=== PATIENT | male | born 1985 | race Caucasian/White ===

== ENCOUNTER 2018-08-24 18:19 | Emergency (ER) | payer SELFPAY ==
[2018-08-24] MEDS ORDERED: LIDOCAINE 1% W/EPI 1:100,000 MDV 50 ML VIAL ONE (18:38)
--- NOTE | 2018-08-24 18:58 | ER ---
Nurse's Notes [facility] Name: Juanito Irizarry Age: 32 yrs Sex: Male : 1985 Arrival Date: 08/24/2018 Time: 18:22 Bed 15 Private MD: Diagnosis: Cutaneous abscess of face;Cellulitis of face Presentation: 08/24 18:26 Presenting complaint: Patient states: Abscess to right orthodoxy for 4 days. Transition of aj care: patient was not received from another setting of care. Onset of symptoms was August 20, 2018. Risk Assessment: Do you want to hurt yourself or someone else? Patient reports no desire to harm self or others. Initial Sepsis Screen: Does the patient meet any 2 criteria? No. Patient's initial sepsis screen is negative. Does the patient have a suspected source of infection? No. Patient's initial sepsis screen is negative. Care prior to arrival: None. 18:26 Method Of Arrival: Ambulatory aj 18:26 Acuity: ASHVIN 3 aj Triage Assessment: 18:27 General: Appears in no apparent distress. comfortable, Behavior is calm, cooperative, aj appropriate for age. Pain: Complains of pain in right orthodoxy. Neuro: Level of Consciousness is awake, alert, obeys commands, Oriented to person, place, time, situation, Appropriate for age. Respiratory: Airway is patent Respiratory effort is even, unlabored, Respiratory pattern is regular, symmetrical. Derm: Skin is intact, is healthy with good turgor, Skin is pink, warm \T\ dry. normal, Abscess located on right orthodoxy. Historical: - Allergies: 18:27 PENICILLINS; aj - Home Meds: 18:27 Aspirin Oral [Active]; aj - PMHx: 18:27 None; aj - PSHx: 18:27 None; aj - Immunization history:: Adult Immunizations unknown. - Social history:: Smoking status: Patient uses tobacco products, smokes one-half pack cigarettes per day. - Ebola Screening: : Patient negative for fever greater than or equal to 101.5 degrees Fahrenheit, and additional compatible Ebola Virus Disease symptoms Patient denies exposure to infectious person Patient denies travel to an Ebola-affected area in the 21 days before illness onset No symptoms or risks identified at this time. Screenin:33 Abuse screen: Denies threats or abuse. Denies injuries from another. Nutritional jl7 screening: No deficits noted. Tuberculosis screening: No symptoms or risk factors identified. Fall Risk None identified. Assessment: 18:33 General: Appears in no apparent distress. uncomfortable, Behavior is calm, cooperative, jl7 appropriate for age. Pain: Complains of pain in right orthodoxy. Neuro: Level of Consciousness is awake, alert, obeys commands, Oriented to person, place, time, situation. Cardiovascular: Patient's skin is warm and dry. Respiratory: Airway is patent Respiratory effort is even, unlabored, Respiratory pattern is regular, symmetrical. Derm: Skin is pink, warm \T\ dry. Abscess located on right orthodoxy is quarter sized, has no drainage, is red, is raised. Vital Signs: 18:26 BP 135 / 83; Pulse 67; Resp 16; Temp 97.3; Pulse Ox 99% on R/A; Weight 81.19 kg; Height aj 6 ft. 1 in. (185.42 cm); 18:26 Body Mass Index 23.62 (81.19 kg, 185.42 cm) aj ED Course: 18:22 Patient arrived in ED. mr 18:26 Triage completed. aj 18:26 Arm band placed on left wrist. Patient placed in an exam room. aj 18:28 Michael Santos PA is PHCP. cp 18:28 Chavez Mcfarland MD is Attending Physician. cp 18:28 Bethel Ortiz, JUAN JOSE is Primary Nurse. jl7 18:33 Patient has correct armband on for positive identification. Bed in low position. Call jl7 light in reach. Side rails up X 1. Pulse ox on. NIBP on. 18:45 Assist provider with I \T\ D: of an abscess on right orthodoxy abscess Set up I\T\D tray. jl 7 Performed by Michael BABIN Culture sent to lab. Wound packed. iodoform gauze, Dressing with non stick Band-Aid Patient tolerated well. 19:05 Patient did not have IV access during this emergency room visit. jl7 Administered Medications: 18:45 Drug: Lidocaine-Epinephrine -1%: (1:100,000) 5 ml {Note: administered by simin Lerma.} Volume: 20 ml; Route: Infiltration; 19:03 Follow up: Response: No adverse reaction jl7 19:03 Drug: Clindamycin 300 mg Route: PO; jl7 19:03 Follow up: Response: Medication administered at discharge. jl7 19:03 Drug: Bactrim (160 mg-800 mg (DS) 1 tablet Route: PO; jl7 19:03 Follow up: Response: Medication administered at discharge. jl7 Outcome: 18:57 Discharge ordered by MD. cp 19:11 Discharged to home ambulatory. jl7 19:11 Condition: stable 19:11 Discharge instructions given to patient, Instructed on discharge instructions, follow up and referral plans. medication usage, wound care, Demonstrated understanding of instructions, follow-up care, medications, wound care, Prescriptions given X 2. 19:11 Patient left the ED. jl7 Addendum: 08/28/2018 09:57 Addendum: Culture Results: Positive wound culture. No further action required. Bacteria s s sensitive to prescribed antibiotic. Signatures: Clarisse Paz RN Makayla Orellana mr Guera Bosch RN RN ss Page, Corey, PA PA cp Leal, Jahala RN JUAN JOSE jl7 Corrections: (The following items were deleted from the chart) 08/24 18:27 18:26 Acuity: ASHVIN 4 [place]
--- NOTE | 2018-08-24 18:58 | EDPHYS ---
Physician Documentation [facility] Name: Juanito Irizarry Age: 32 yrs Sex: Male : 1985 Arrival Date: 08/24/2018 Time: 18:22 Bed 15 Private MD: ED Physician Chavez Mcfarland HPI: 08/24 18:35 This 32 yrs old Male presents to ER via Ambulatory with complaints of Abscess.cp 18:35 The patient presents with an abscess of the face and right baptism, the patient presents cp with a swollen area of the . 18:35 Description: swollen, tense, warm. Onset: The symptoms/episode began/occurred 4 day(s) cp ago. Associated signs and symptoms: Pertinent negatives: discharge, drainage, fever, headache. Severity of symptoms: in the emergency department the symptoms are unchanged, despite home interventions. Historical: - Allergies: 18:27 PENICILLINS; aj - Home Meds: 18:27 Aspirin Oral [Active]; aj - PMHx: 18:27 None; aj - PSHx: 18:27 None; aj - Immunization history:: Adult Immunizations unknown. - Social history:: Smoking status: Patient uses tobacco products, smokes one-half pack cigarettes per day. - Ebola Screening: : Patient negative for fever greater than or equal to 101.5 degrees Fahrenheit, and additional compatible Ebola Virus Disease symptoms Patient denies exposure to infectious person Patient denies travel to an Ebola-affected area in the 21 days before illness onset No symptoms or risks identified at this time. ROS: 18:40 Constitutional: Negative for body aches, chills, fever. cp 18:40 Eyes: Negative for injury, pain, redness, and discharge. cp 18:40 Respiratory: Negative for cough, shortness of breath, wheezing. 18:40 Abdomen/GI: Negative for abdominal pain, nausea, vomiting, and diarrhea. 18:40 Skin: Positive for abscess, cellulitis, of the face and right baptism. 18:40 All other systems are negative. Exam: 18:45 Constitutional: The patient appears in no acute distress, alert, awake, non-toxic, well cp developed, well nourished. 18:45 Head/face: Exam is negative for rash, Sinus tenderness, is not appreciated. cp 18:45 Eyes: Pupils: equal, round, and reactive to light and accomodation, Extraocular movements: intact throughout, Conjunctiva: normal, no exudate, no injection, Sclera: no appreciated abnormality, Lids and lashes: appear normal, bilaterally. 18:45 ENT: External ear(s): are unremarkable, Ear canal(s): are normal, clear, TM's: dullness, bilaterally, Nose: is normal, Mouth: Lips: moist, Oral mucosa: moist, Posterior pharynx: is normal, airway is patent, no erythema, no exudate, Voice: is normal. 18:45 Neck: ROM/movement: is normal, is supple, without pain, no range of motions limitations, no nuchal rigidity. 18:45 Chest/axilla: Inspection: normal, Palpation: is normal, no crepitus, no tenderness. 18:45 Cardiovascular: Rate: normal, Rhythm: regular. 18:45 Respiratory: the patient does not display signs of respiratory distress, Respirations: normal, no use of accessory muscles, no retractions, no splinting, no tachypnea, labored breathing, is not present, Breath sounds: are clear throughout, no decreased breath sounds, no stridor, no wheezing. 18:45 Abdomen/GI: Exam negative for discomfort, distension, guarding, Inspection: abdomen appears normal. 18:45 Skin: abscess, that is small, of the face and right baptism, cellulitis, that is mild, on the right baptism and face with extension to right infraorbital area. 18:45 Neuro: Orientation: to person, place \T\ time. Mentation: lucid, able to follow commands, Cerebellar function: is grossly normal, Motor: moves all fours, strength is normal, Sensation: is normal. Vital Signs: 18:26 BP 135 / 83; Pulse 67; Resp 16; Temp 97.3; Pulse Ox 99% on R/A; Weight 81.19 kg; Height aj 6 ft. 1 in. (185.42 cm); 18:26 Body Mass Index 23.62 (81.19 kg, 185.42 cm) Procedures: 18:45 I \T\ D: Incision and drainage was performed for an abscess of the face and right baptism cp Prepped with Betadine, Anesthetized with 2 ml's 1% Lidocaine w/ Epi. Incised with #11 blade. Drained small amount purulent fluid. bloody fluid. Cultures obtained. Packed with iodoform gauze, Dressing: non-Adherent dressing, the patient tolerated the procedure well. MDM: 18:29 Patient medically screened. 18:30 Differential diagnosis: abscess, cellulitis, insect bite. 18:56 Data reviewed: vital signs, nurses notes, and as a result, I will discharge patient. 18:56 Counseling: I had a detailed discussion with the patient and/or guardian regarding: the cp historical points, exam findings, and any diagnostic results supporting the discharge/admit diagnosis, to return to the emergency department if symptoms worsen or persist or if there are any questions or concerns that arise at home. 18:56 Response to treatment: the patient's symptoms have mildly improved after treatment, and cp as a result, I will discharge patient. 08/24 18:55 Order name: Wound Culture: right baptism 08/24 18:34 Order name: I\T\D Setup; Complete Time: 18:35 cp Administered Medications: 18:45 Drug: Lidocaine-Epinephrine -1%: (1:100,000) 5 ml {Note: administered by simin Lerma PA.} Volume: 20 ml; Route: Infiltration; 19:03 Follow up: Response: No adverse reaction [facility] 19:03 Drug: Clindamycin 300 mg Route: PO; [facility] 19:03 Follow up: Response: Medication administered at discharge. [facility] 19:03 Drug: Bactrim (160 mg-800 mg (DS) 1 tablet Route: PO; [facility] 19:03 Follow up: Response: Medication administered at discharge. [facility] Disposition: 19:15 Chart complete. 08/25 18:22 Co-signature as Attending Physician, Chavez Mcfarland MD. Disposition: 08/24/18 18:57 Discharged to Home. Impression: Cutaneous abscess of face, Cellulitis of face. - Condition is Stable. - Discharge Instructions: Skin Abscess, Cellulitis, Adult, Incision and Drainage. - Prescriptions for Clindamycin HCl 300 mg Oral Capsule - take 1 capsule by ORAL route every 6 hours for 10 days; 40 capsule. Bactrim DS 800- 160 mg Oral Tablet - take 1 tablet by ORAL route every 12 hours for 10 days; 20 tablet. - Medication Reconciliation Form, Thank You Letter, Antibiotic Education, Prescription Opioid Use form. - Follow up: Emergency Department; When: As needed; Reason: Worsening of condition. - Problem is new. - Symptoms have improved. Signatures: Dispatcher [employer] EDMS Clarisse Paz RN RN Michael Guerra PA PA cp Leal, Jahala, RN RN jl7 Chavez Mcfarland MD MD gs Corrections: (The following items were deleted from the chart) 08/24 19:11 18:57 08/24/2018 18:57 Discharged to Home. Impression: Cutaneous abscess of face; jl7 Cellulitis of face. Condition is Stable. Forms are Medication Reconciliation Form, Thank You Letter, Antibiotic Education, Prescription Opioid Use. Follow up: Emergency Department; When: As needed; Reason: Worsening of condition. Problem is new. Symptoms have improved. cp
[2018-08-24] MEDS ORDERED: CLINDAMYCIN HCL 150 MG CAP ONE (19:06)
[2018-08-24] MEDS ORDERED: SMZ./TMP. 800/160 MG TABLET ONE (19:06)
== END 2018-08-24 19:11 | disposition home or self-care (01) ==
LOC: ER 18:19
PROC: 0J910ZZ Drainage of Face Subcutaneous Tissue and Fascia, Open Approach (ICD-10-PCS; principal; 2018-08-24)
DX: L03.211 Cellulitis of face (principal); F17.210 Nicotine dependence, cigarettes, uncomplicated; Z79.82 Long term (current) use of aspirin; Z88.0 Allergy status to penicillin
CPT/HCPCS: 87070; 87077; 87186; 87205; 99284

== ENCOUNTER 2018-09-14 16:35 | Emergency (ER) | payer SELFPAY ==
--- NOTE | 2018-09-14 18:04 | RAD REPORT ---
EXAM DESCRIPTION: CT - Facial Bones W/ Mpr - 09/14/2018 5:39 pm CLINICAL HISTORY: Facial injury status post fall. Facial pain COMPARISON: None TECHNIQUE: Computed axial tomography of the face was obtained. Coronal and sagittal reconstruction w as performed. All CT scans are performed using dose optimization technique as appropriate and may include automated exposure control or mA/KV adjustment according to patient size. FINDINGS: A fracture is not seen. A TMJ dislocation is not noted. The globes are intact. Fluid within the sinuses is not seen. Mucoperiosteal thickening involves the m axillary sinuses IMPRESSION: Negative for a facial fracture.
--- NOTE | 2018-09-14 18:16 | ER ---
Nurse's Notes [facility] Name: Juanito Irizarry Age: 32 yrs Sex: Male : 1985 Arrival Date: 09/14/2018 Time: 16:37 Bed 24 Private MD: Diagnosis: Dislocation of tooth;Dentalgia Presentation: 09/14 16:48 Presenting complaint: Patient states: "I had a seizure last night and fell and busted aj1 my lip and I think I busted my gum line because one of my teeth is really hurting, its like knocked back a bit and I can barely chew anything" Laceration noted to inside of upper lip, bleeding noted to upper gums. Reports pain to right front tooth. States "I used to take seizure medicine, I dont remember what its called, but I ran out of it and then I moved". Patient reports he has been out of his seizure medication for 2 years. Transition of care: patient was not received from another setting of care. Onset of symptoms was September 14, 2018. Risk Assessment: Do you want to hurt yourself or someone else? Patient reports no desire to harm self or others. Initial Sepsis Screen: Does the patient meet any 2 criteria? No. Patient's initial sepsis screen is negative. Does the patient have a suspected source of infection? No. Patient's initial sepsis screen is negative. Care prior to arrival: None. 16:48 Method Of Arrival: Ambulatory aj1 16:48 Acuity: ASHVIN 3 aj1 Triage Assessment: 16:52 General: Appears in no apparent distress. uncomfortable, Behavior is calm, cooperative, aj1 appropriate for age. Pain: Complains of pain in mouth Pain currently is 7 out of 10 on a pain scale. EENT: Reports pain in frenulum and upper right central incisor. Neuro: Level of Consciousness is awake, alert, obeys commands. Cardiovascular: Patient's skin is warm and dry. Respiratory: Airway is patent Respiratory effort is even, unlabored, Respiratory pattern is regular, symmetrical. Historical: - Allergies: 16:52 PENICILLINS; aj1 - Home Meds: 16:52 Aspirin Oral [Active]; aj1 - PMHx: 16:52 Headaches; Seizures; low back pain; aj1 - PSHx: 16:52 None; aj1 - Immunization history:: Flu vaccine is not up to date. - Social history:: Smoking status: Patient/guardian denies using tobacco. - Ebola Screening: : Patient denies travel to an Ebola-affected area in the 21 days before illness onset. Screenin:00 Abuse screen: Denies threats or abuse. Denies injuries from another. Nutritional kr2 screening: No deficits noted. Tuberculosis screening: No symptoms or risk factors identified. Fall Risk None identified. Assessment: 17:00 General: Appears in no apparent distress. uncomfortable, well groomed, well developed, kr2 well nourished, Behavior is calm, cooperative, appropriate for age. Pain: Complains of pain in mouth Pain does not radiate. Pain currently is 5 out of 10 on a pain scale. Quality of pain is described as aching, tender, Is continuous, Alleviated by medications, rest. Neuro: Level of Consciousness is awake, alert, obeys commands, Oriented to person, place, time, situation, Appropriate for age. Cardiovascular: Capillary refill < 3 seconds in bilateral fingers Patient's skin is warm and dry. Respiratory: Airway is patent Respiratory effort is even, unlabored, Respiratory pattern is regular, symmetrical. EENT: Oral mucosa is moist. Upper lip swollen, laceration to inner upper lip, front tooth pushed inward. Throat is clear. Derm: Skin is healthy with good turgor, Skin is pink, warm \\T\\ dry. Musculoskeletal: Circulation, motion, and sensation intact. Vital Signs: 16:52 BP 128 / 90; Pulse 86; Resp 18; Temp 97.5; Pulse Ox 98% on R/A; Weight 82.55 kg (R); aj1 Height 6 ft. 1 in. (185.42 cm) (R); Pain 7/10; 18:29 BP 118 / 88; Pulse 84; Resp 16; Pulse Ox 100% ; kr2 16:52 Body Mass Index 24.01 (82.55 kg, 185.42 cm) aj1 ED Course: 16:37 Patient arrived in ED. tw3 16:47 Amanda Lindo FNP-C is PHCP. snw 16:47 Wayne He MD is Attending Physician. snw 16:50 Triage completed. aj1 16:52 Arm band placed on Patient placed in an exam room. aj1 16:54 Willi Day PA is PHCP. jr8 16:54 Wayne He MD is Attending Physician. jr8 17:00 Patient has correct armband on for positive identification. Bed in low position. Call kr2 light in reach. Side rails up X 1. Pulse ox on. NIBP on. Door closed. Warm blanket given. Head of bed elevated. 17:37 Laura Chew, RN is Primary Nurse. kr2 17:38 CT completed. Patient moved to CT via wheelchair. Patient moved back from CT. cw1 17:39 CT Facial Bones W/O Con In Process Unspecified. EDMS 17:59 Diet: Patient given snack. Patient given juice. Tolerated well. jp3 18:27 No provider procedures requiring assistance completed. Patient did not have IV access kr2 during this emergency room visit. Administered Medications: No medications were administered Outcome: 18:16 Discharge ordered by MD. jr8 18:27 Discharged to home ambulatory. kr2 18:27 Condition: good 18:27 Discharge instructions given to patient, Instructed on discharge instructions, follow up and referral plans. medication usage, Demonstrated understanding of instructions, follow-up care, medications, Prescriptions given X 2. 18:30 Patient left the ED. kr2 Signatures: Dispatcher [employer] EDNV Nini Holland RN RN aj1 Amanda Lindo, [employer] DEVELOPMENT CONSULTANT-Jinny Goodwin cw1 Willi Day PA PA jr8 Shaun, Conchita tw3 Laura Chew, RN RN kr2 Sergio Ramirez jp3 Corrections: (The following items were deleted from the chart) 16:51 16:48 Presenting complaint: Patient states: "I had a seizure last night and fell and aj1 busted my lip and I think I busted my gum line because one of my teeth is really hurting, its like knocked back a bit and I can barely chew anything" Laceration noted to inside of upper lip, bleeding noted to upper gums. Reports pain to right front tooth. aj1 18:26 16:40 General: Appears in no apparent distress. uncomfortable, well groomed, well kr2 developed, well nourished, Behavior is calm, cooperative, appropriate for age, kr2 18:26 16:40 Pain: Complains of pain in mouth Pain does not radiate. Pain currently is 5 out kr2 of 10 on a pain scale. Quality of pain is described as aching, tender, Is continuous, Alleviated by medications, rest, kr2 18:26 16:40 Neuro: Level of Consciousness is awake, alert, obeys commands, Oriented to kr2 person, place, time, situation, Appropriate for age kr2 18:26 16:40 Cardiovascular: Capillary refill < 3 seconds in bilateral fingers Patient's skin kr2 is warm and dry. kr2 18:26 16:40 Respiratory: Airway is patent Respiratory effort is even, unlabored, Respiratory kr2 pattern is regular, symmetrical, kr2 18:26 16:40 EENT: Oral mucosa is moist. Upper lip swollen, laceration to inner upper lip, kr2 front tooth pushed inward. Throat is clear kr2 18:26 16:40 Derm: Skin is healthy with good turgor, Skin is pink, warm \\T\\ dry. kr2 kr2 18:26 16:40 Musculoskeletal: Circulation, motion, and sensation intact. kr2 kr2 18:28 16:40 Abuse screen: Denies threats or abuse. Denies injuries from another. kr2 kr2 18:28 16:40 Nutritional screening: No deficits noted. kr2 kr2 18:28 16:40 Tuberculosis screening: No symptoms or risk factors identified. kr2 kr2 18:28 16:40 Fall Risk None identified. kr2 kr2
--- NOTE | 2018-09-14 18:16 | EDPHYS ---
Physician Documentation [facility] Name: Juanito Irizarry Age: 32 yrs Sex: Male : 1985 Arrival Date: 09/14/2018 Time: 16:37 Bed 24 Private MD: ED Physician Wayne He HPI: 09/14 17:22 This 32 yrs old Male presents to ER via Ambulatory with complaints of Trauma jr8 to Face. 17:22 Onset: The symptoms/episode began/occurred acutely, yesterday. Duration: The symptoms jr8 are continuous. Associated signs and symptoms: The patient has no apparent associated signs or symptoms. Severity of symptoms: At their worst the symptoms were moderate, in the emergency department the symptoms are unchanged. The patient has not experienced similar symptoms in the past. The patient has not recently seen a physician. Patient with history of seizure disorder. Stated that he has been off of his medication for a couple of years now. Has had multiple seizures since he has been off of his meds. Had one last night at some point and woke up on the floor. Stated that his front teeth hurt and feels that his mouth is misaligned . Historical: - Allergies: 16:52 PENICILLINS; aj1 - Home Meds: 16:52 Aspirin Oral [Active]; aj1 - PMHx: 16:52 Headaches; Seizures; low back pain; aj1 - PSHx: 16:52 None; aj1 - Immunization history:: Flu vaccine is not up to date. - Social history:: Smoking status: Patient/guardian denies using tobacco. - Ebola Screening: : Patient denies travel to an Ebola-affected area in the 21 days before illness onset. ROS: 17:22 Eyes: Negative for injury, pain, redness, and discharge, Neck: Negative for injury, jr8 pain, and swelling, Cardiovascular: Negative for chest pain, palpitations, and edema, Respiratory: Negative for shortness of breath, cough, wheezing, and pleuritic chest pain, Abdomen/GI: Negative for abdominal pain, nausea, vomiting, diarrhea, and constipation, Back: Negative for injury and pain, MS/Extremity: Negative for injury and deformity, Skin: Negative for injury, rash, and discoloration. 17:22 ENT: Positive for dental pain. 17:22 Neuro: Positive for seizure activity. Exam: 18:09 Head/Face: Normocephalic, atraumatic. Eyes: Pupils equal round and reactive to light, jr8 extra-ocular motions intact. Lids and lashes normal. Conjunctiva and sclera are non-icteric and not injected. Cornea within normal limits. Periorbital areas with no swelling, redness, or edema. Neck: Trachea midline, no thyromegaly or masses palpated, and no cervical lymphadenopathy. Supple, full range of motion without nuchal rigidity, or vertebral point tenderness. No Meningismus. Cardiovascular: Regular rate and rhythm with a normal S1 and S2. No gallops, murmurs, or rubs. Normal PMI, no JVD. No pulse deficits. Respiratory: Lungs have equal breath sounds bilaterally, clear to auscultation and percussion. No rales, rhonchi or wheezes noted. No increased work of breathing, no retractions or nasal flaring. Abdomen/GI: Soft, non-tender, with normal bowel sounds. No distension or tympany. No guarding or rebound. No evidence of tenderness throughout. Back: No spinal tenderness. No costovertebral tenderness. Full range of motion. Skin: Warm, dry with normal turgor. Normal color with no rashes, no lesions, and no evidence of cellulitis. MS/ Extremity: Pulses equal, no cyanosis. Neurovascular intact. Full, normal range of motion. Neuro: Awake and alert, GCS 15, oriented to person, place, time, and situation. Cranial nerves II-XII grossly intact. Motor strength 5/5 in all extremities. Sensory grossly intact. Cerebellar exam normal. Normal gait. 18:09 ENT: Exam is negative for earache, ear discharge, TM abnormalities, nasal discharge, enlarged tonsils, pharyngitis, exudate, Dental exam: pain, that is moderate, specifically in the upper right central incisor (#8). Vital Signs: 16:52 BP 128 / 90; Pulse 86; Resp 18; Temp 97.5; Pulse Ox 98% on R/A; Weight 82.55 kg (R); aj1 Height 6 ft. 1 in. (185.42 cm) (R); Pain 7/10; 18:29 BP 118 / 88; Pulse 84; Resp 16; Pulse Ox 100% ; kr2 16:52 Body Mass Index 24.01 (82.55 kg, 185.42 cm) aj1 MDM: 16:55 Patient medically screened. jr8 18:09 Data reviewed: vital signs, nurses notes, and as a result, I will discharge patient. jr8 Data interpreted: Pulse oximetry: on room air is 98 %. Interpretation: normal. Counseling: I had a detailed discussion with the patient and/or guardian regarding: the historical points, exam findings, and any diagnostic results supporting the discharge/admit diagnosis, the need for outpatient follow up, a dentist, to return to the emergency department if symptoms worsen or persist or if there are any questions or concerns that arise at home. 09/14 17:17 Order name: CT Facial Bones W/O Con; Complete Time: 18:08 jr8 Administered Medications: No medications were administered Disposition: 18:56 Co-signature as Attending Physician, Wayne He MD I agree with the assessment and kdr plan of care. Disposition: 09/14/18 18:16 Discharged to Home. Impression: Dislocation of tooth, Dentalgia. - Condition is Stable. - Discharge Instructions: Dental Pain. - Prescriptions for Ibuprofen 800 mg Oral Tablet - take 1 tablet by ORAL route every 12 hours As needed take with food; 20 tablet. Tylenol- Codeine #3 300-30 mg Oral Tablet - take 2 tablets by ORAL route every 6 hours As needed; 12 tablet. - Medication Reconciliation Form, Thank You Letter, Antibiotic Education, Prescription Opioid Use, Work release form form. - Follow up: Private Physician; When: 2 - 3 days; Reason: Recheck today's complaints, Continuance of care, Re-evaluation by your physician. - Problem is new. - Symptoms have improved. Signatures: Dispatcher [employer] EDKS Nini Holland, RN RN aj1 Wayne He MD MD [facility] Willi Day PA PA jr8 Laura Chew RN RN kr2 Corrections: (The following items were deleted from the chart) 17:20 17:11 Mandible <4 Views+RAD.RAD.BRZ ordered. EDKS EDMS 17:20 17:11 Facial Bones <3 Views+RAD.RAD.BRZ ordered. EDKS EDMS 18:30 18:16 09/14/2018 18:16 Discharged to Home. Impression: Dislocation of tooth; Dentalgia. kr2 Condition is Stable. Forms are Medication Reconciliation Form, Thank You Letter, Antibiotic Education, Prescription Opioid Use. Follow up: Private Physician; When: 2 - 3 days; Reason: Recheck today's complaints, Continuance of care, Re-evaluation by your physician. Problem is new. Symptoms have improved. jr8
== END 2018-09-14 18:30 | disposition home or self-care (01) ==
LOC: ER 16:35
DX: S03.2XXA Dislocation of tooth, initial encounter (principal); X58.XXXA Exposure to other specified factors, initial encounter; Y93.89 Activity, other specified; Y92.9 Unspecified place or not applicable; Z79.82 Long term (current) use of aspirin; Z88.0 Allergy status to penicillin; G40.909 Epilepsy, unspecified, not intractable, without status epilepticus
CPT/HCPCS: 70486; 76377; 99284

== ENCOUNTER 2018-12-24 18:44 | Emergency (ER) | payer SELFPAY ==
--- NOTE | 2018-12-24 19:20 | EDPHYS ---
Physician Documentation [facility] Name: Juanito Irizarry Age: 33 yrs Sex: Male : 1985 Arrival Date: 12/24/2018 Time: 18:46 Bed 18 Private MD: None, None ED Physician Carlos Eduardo Ellison HPI: 12/24 19:15 This 33 yrs old Male presents to ER via Ambulatory with complaints of Back rn Pain, Shoulder Pain. 19:15 The patient presents with pain that is chronic. The symptoms are located in the low rn back. Onset: The symptoms/episode began/occurred 19 year(s) ago. The pain does not radiate. Associated signs and symptoms: The patient has no apparent associated signs or symptoms, Pertinent negatives: abdominal pain, chest pain, constipation, dysuria, fever, hematuria, incontinence, numbness, tingling, urinary retention, vomiting, weakness. Severity of symptoms: At their worst the symptoms were mild, in the emergency department the symptoms are unchanged. The patient has experienced similar episodes in the past, chronically. Reports chronic back and scapular pain, for almost 20 years, no new injuries or symptoms, no trauma. Tried one tylenol #3, nothing else. No weakness/bowel or bladder problems. . Historical: - Allergies: 18:53 PENICILLINS; tw2 - Home Meds: 18:53 Aspirin Oral [Active]; acetaminophen-codeine 300-30 mg Oral tab 1 tab every 4 hours tw2 [Active]; - PMHx: 18:53 Headaches; low back pain; Seizures; tw2 - PSHx: 18:53 None; tw2 - Immunization history:: Adult Immunizations. - Social history:: Smoking status: Patient uses tobacco products, smokes one-half pack cigarettes per day. - Ebola Screening: : Patient denies travel to an Ebola-affected area in the 21 days before illness onset. - Family history:: not pertinent. - Hospitalizations: : No recent hospitalization is reported. ROS: 19:15 Constitutional: Negative for fever, chills, and weight loss, Eyes: Negative for injury, rn pain, redness, and discharge, Neck: Negative for injury, pain, and swelling, Cardiovascular: Negative for chest pain, palpitations, and edema, Respiratory: Negative for shortness of breath, cough, wheezing, and pleuritic chest pain, Abdomen/GI: Negative for abdominal pain, nausea, vomiting, diarrhea, and constipation, Back: + low back pain : Negative for injury, bleeding, discharge, and swelling, MS/Extremity: Negative for injury and deformity, Skin: Negative for injury, rash, and discoloration, Neuro: Negative for headache, weakness, numbness, tingling, and seizure. Exam: 19:15 Constitutional: This is a well developed, well nourished patient who is awake, alert, rn and in no acute distress. Sitting with legs crossed and playing games on phone. Head/Face: Normocephalic, atraumatic. Neck: NO midline tenderness Back: No spinal tenderness. No costovertebral tenderness. Full range of motion. MS/ Extremity: Pulses equal, no cyanosis. Neurovascular intact. Full, normal range of motion. Equal circumference. Neuro: Awake and alert, GCS 15, oriented to person, place, time, and situation. Cranial nerves II-XII grossly intact. Motor strength 5/5 in all extremities. Sensory grossly intact. Cerebellar exam normal. Normal gait. Vital Signs: 18:52 BP 123 / 79; Pulse 78; Resp 17; Temp 99.9(O); Pulse Ox 98% on R/A; Weight 83.46 kg (R); tw2 Height 6 ft. 1 in. (185.42 cm); Pain 8/10; 19:19 BP 129 / 84; Pulse 76; Resp 18; Pulse Ox 97% on R/A; ea 18:52 Body Mass Index 24.28 (83.46 kg, 185.42 cm) tw2 MDM: 19:00 Patient medically screened. rn 19:15 Differential diagnosis: chronic back pain. Data reviewed: vital signs, nurses notes, rn and as a result, I will discharge patient. Counseling: I had a detailed discussion with the patient and/or guardian regarding: the historical points, exam findings, and any diagnostic results supporting the discharge/admit diagnosis, the need for outpatient follow up, to return to the emergency department if symptoms worsen or persist or if there are any questions or concerns that arise at home. Special discussion: I discussed with the patient/guardian in detail that at this point there is no indication for admission to the hospital. It is understood, however, that if the symptoms persist or worsen the patient needs to return immediately for re-evaluation. Based on the history and exam findings, there is no indication for further emergent testing or inpatient evaluation. I discussed with the patient/guardian the need to see the paint spray tender for further evaluation of the symptoms. ED course: Discussed with patient that needs to f/u with pain management, chronic pain for almost 20 years does not require emergent treatment. . Administered Medications: No medications were administered Disposition: 12/24/18 19:20 Discharged to Home. Impression: Low back pain, Other chronic pain. - Condition is Stable. - Discharge Instructions: Back Pain, Adult, Chronic Back Pain, Chronic Pain, Musculoskeletal Pain. - Prescriptions for Diclofenac Sodium 75 mg Oral Tablet, Delayed Release (E.C.) - take 1 tablet by ORAL route 2 times per day; 20 tablet. Cyclobenzaprine 5 mg Oral Tablet - take 1 tablet by ORAL route 3 times per day As needed; 15 tablet. - Medication Reconciliation Form, Thank You Letter, Antibiotic Education, Prescription Opioid Use form. - Follow up: Private Physician; When: As needed; Reason: Recheck today's complaints, Re-evaluation by your physician. - Problem is chronic. - Symptoms are unchanged. Signatures: Carlos Eduardo Ellison MD MD rn Wise, Tara, RN RN 2 Leeann Harrison RN RN ea Corrections: (The following items were deleted from the chart) 19:18 19:15 Constitutional: This is a well developed, well nourished patient who is awake, rn alert, and in no acute distress. Head/Face: Normocephalic, atraumatic. Neck: NO midline tenderness Back: No spinal tenderness. No costovertebral tenderness. Full range of motion. MS/ Extremity: Pulses equal, no cyanosis. Neurovascular intact. Full, normal range of motion. Equal circumference. Neuro: Awake and alert, GCS 15, oriented to person, place, time, and situation. Cranial nerves II-XII grossly intact. Motor strength 5/5 in all extremities. Sensory grossly intact. Cerebellar exam normal. Normal gait. rn 19:35 19:20 12/24/2018 19:20 Discharged to Home. Impression: Low back pain; Other chronic ea pain. Condition is Stable. Forms are Medication Reconciliation Form, Thank You Letter, Antibiotic Education, Prescription Opioid Use. Follow up: Private Physician; When: As needed; Reason: Recheck today's complaints, Re-evaluation by your physician. Problem is chronic. Symptoms are unchanged. rn
--- NOTE | 2018-12-24 19:20 | ER ---
Nurse's Notes [facility] Name: Juanito Irizarry Age: 33 yrs Sex: Male : 1985 Arrival Date: 12/24/2018 Time: 18:46 Bed 18 Private MD: None, None Diagnosis: Low back pain;Other chronic pain Presentation: 12/24 18:51 Presenting complaint: Patient states: i am having severe chronic shoulder and back tw2 pain, since i was 14, about 3 months ago it got worse. Transition of care: patient was not received from another setting of care. Onset of symptoms was December 24, 2018. Risk Assessment: Do you want to hurt yourself or someone else? Patient reports no desire to harm self or others. Initial Sepsis Screen: Does the patient meet any 2 criteria? No. Patient's initial sepsis screen is negative. Does the patient have a suspected source of infection? No. Patient's initial sepsis screen is negative. Care prior to arrival: None. 18:51 Method Of Arrival: Ambulatory tw2 18:51 Acuity: ASHVIN 4 tw2 Triage Assessment: 18:53 General: Appears in no apparent distress. Behavior is calm, cooperative, flat. Pain: tw2 Complains of pain in right shoulder and mid to low back. Musculoskeletal: Circulation, motion, and sensation intact. Range of motion: intact in all extremities. Historical: - Allergies: 18:53 PENICILLINS; tw2 - Home Meds: 18:53 Aspirin Oral [Active]; acetaminophen-codeine 300-30 mg Oral tab 1 tab every 4 hours tw2 [Active]; - PMHx: 18:53 Headaches; low back pain; Seizures; tw2 - PSHx: 18:53 None; tw2 - Immunization history:: Adult Immunizations. - Social history:: Smoking status: Patient uses tobacco products, smokes one-half pack cigarettes per day. - Ebola Screening: : Patient denies travel to an Ebola-affected area in the 21 days before illness onset. - Family history:: not pertinent. - Hospitalizations: : No recent hospitalization is reported. Screenin:57 Abuse screen: Denies threats or abuse. Denies injuries from another. Nutritional bp screening: No deficits noted. Tuberculosis screening: No symptoms or risk factors identified. Fall Risk None identified. Assessment: 18:55 General: Appears in no apparent distress. comfortable, Behavior is calm, cooperative, bp appropriate for age. Pain: Complains of pain in back. Neuro: Level of Consciousness is awake, alert, obeys commands, Oriented to person, place, time, situation, Appropriate for age Gait is steady. Cardiovascular: No deficits noted. Respiratory: Airway is patent Respiratory effort is even, unlabored, Respiratory pattern is regular, symmetrical. GI: No signs and/or symptoms were reported involving the gastrointestinal system. : No signs and/or symptoms were reported regarding the genitourinary system. EENT: No deficits noted. Derm: No signs and/or symptoms reported regarding the dermatologic system. Musculoskeletal: Circulation, motion, and sensation intact. Range of motion: intact in all extremities. 19:17 General: Appears in no apparent distress. Behavior is calm, cooperative, appropriate ea for age. Pain: Complains of pain in thoracic area and lumbar area. Neuro: Level of Consciousness is awake, alert, obeys commands, Oriented to person, place, time, situation, Moves all extremities. Cardiovascular: Patient's skin is warm and dry. Respiratory: Airway is patent Respiratory effort is even, unlabored, Respiratory pattern is regular, symmetrical. GI: No signs and/or symptoms were reported involving the gastrointestinal system. Derm: Skin is pink, warm \T\ dry. Musculoskeletal: Circulation, motion, and sensation intact. 19:34 Reassessment: Patient and/or family updated on plan of care and expected duration. Pain ea level reassessed. Patient is alert, oriented x 3, equal unlabored respirations, skin warm/dry/pink. Discharge instruction given to patient, verbalized the understanding of instruction. Vital Signs: 18:52 BP 123 / 79; Pulse 78; Resp 17; Temp 99.9(O); Pulse Ox 98% on R/A; Weight 83.46 kg (R); tw2 Height 6 ft. 1 in. (185.42 cm); Pain 8/10; 19:19 BP 129 / 84; Pulse 76; Resp 18; Pulse Ox 97% on R/A; ea 18:52 Body Mass Index 24.28 (83.46 kg, 185.42 cm) tw2 ED Course: 18:46 Patient arrived in ED. sb2 18:47 None, None is Private Physician. sb2 18:52 Triage completed. tw2 18:52 Arm band placed on. tw2 18:55 JobBraeden cancinoian, RN is Primary Nurse. bp 18:57 Patient has correct armband on for positive identification. Bed in low position. Call bp light in reach. Side rails up X2. 19:00 Carlos Eduardo Ellison MD is Attending Physician. rn 19:34 No provider procedures requiring assistance completed. Patient did not have IV access ea during this emergency room visit. Administered Medications: No medications were administered Outcome: 19:20 Discharge ordered by . rn 19:34 Discharged to home ambulatory. ea 19:34 Condition: good 19:34 Discharge instructions given to patient, Instructed on discharge instructions, follow up and referral plans. medication usage, Demonstrated understanding of instructions, follow-up care, medications, Prescriptions given X 2. 19:35 Patient left the ED. ea Signatures: Carlos Eduardo Ellison MD MD rn Wise, Tara RN RN tw2 Leeann Harrison RN RN Ge Devi, RN RN Vanessa Hernandez 2
== END 2018-12-24 19:35 | disposition home or self-care (01) ==
LOC: ER 18:44
DX: M54.5 Low back pain (principal); F17.210 Nicotine dependence, cigarettes, uncomplicated; Z88.0 Allergy status to penicillin; Z79.82 Long term (current) use of aspirin
CPT/HCPCS: 99282

== ENCOUNTER 2019-03-02 15:02 | Emergency (ER) | payer SELFPAY ==
--- NOTE | 2019-03-02 16:44 | EDPHYS ---
Physician Documentation [facility] Name: Juanito Irizarry Age: 33 yrs Sex: Male : 1985 Arrival Date: 03/02/2019 Time: 15:03 Bed 12 Private MD: ED Physician Michael Salinas HPI: 03/02 16:36 This 33 yrs old Male presents to ER via Ambulatory with complaints of Flu snw Symptoms. 16:36 The patient or guardian reports cough. Onset: The symptoms/episode began/occurred snw suddenly, 3 day(s) ago. Severity of symptoms: At their worst the symptoms were moderate. Associated signs and symptoms: Pertinent positives: bronchitic cough. The patient has experienced similar episodes in the past, a few times. The patient has not recently seen a physician. most members of household with same s/s. Historical: - Allergies: 15:06 PENICILLINS; la1 - PMHx: 15:06 Headaches; low back pain; Seizures; la1 - Immunization history:: Adult Immunizations up to date. - Social history:: Smoking status: Patient uses tobacco products, denies chronic smoking, but will smoke occasionally. - Ebola Screening: : No symptoms or risks identified at this time. ROS: 16:35 Eyes: Negative for injury, pain, redness, and discharge, ENT: Negative for injury, snw pain, and discharge, Neck: Negative for injury, pain, and swelling, Cardiovascular: Negative for chest pain, palpitations, and edema. 16:35 Abdomen/GI: Negative for abdominal pain, nausea, vomiting, diarrhea, and constipation. 16:35 : Negative for injury, bleeding, discharge, and swelling, MS/Extremity: Negative for injury and deformity, Skin: Negative for injury, rash, and discoloration, Neuro: Negative for headache, weakness, numbness, tingling, and seizure, Psych: Negative for depression, anxiety, suicide ideation, homicidal ideation, and hallucinations. 16:35 Constitutional: Positive for body aches, fatigue, malaise. 16:35 Respiratory: Positive for cough. 16:35 Back: Positive for pain with movement. Exam: 16:35 Constitutional: This is a well developed, well nourished patient who is awake, alert, snw and in no acute distress. Head/Face: Normocephalic, atraumatic. Eyes: Pupils equal round and reactive to light, extra-ocular motions intact. Lids and lashes normal. Conjunctiva and sclera are non-icteric and not injected. Cornea within normal limits. Periorbital areas with no swelling, redness, or edema. ENT: Nares patent. No nasal discharge, no septal abnormalities noted. Tympanic membranes are normal and external auditory canals are clear. Oropharynx with no redness, swelling, or masses, exudates, or evidence of obstruction, uvula midline. Mucous membranes moist. Neck: Trachea midline, no thyromegaly or masses palpated, and no cervical lymphadenopathy. Supple, full range of motion without nuchal rigidity, or vertebral point tenderness. No Meningismus. Chest/axilla: Normal chest wall appearance and motion. Nontender with no deformity. No lesions are appreciated. Cardiovascular: Regular rate and rhythm with a normal S1 and S2. No gallops, murmurs, or rubs. Normal PMI, no JVD. No pulse deficits. Respiratory: Lungs have equal breath sounds bilaterally, clear to auscultation and percussion. No rales, rhonchi or wheezes noted. No increased work of breathing, no retractions or nasal flaring. Abdomen/GI: Soft, non-tender, with normal bowel sounds. No distension or tympany. No guarding or rebound. No evidence of tenderness throughout. Back: No spinal tenderness. No costovertebral tenderness. Full range of motion. Skin: Warm, dry with normal turgor. Normal color with no rashes, no lesions, and no evidence of cellulitis. MS/ Extremity: Pulses equal, no cyanosis. Neurovascular intact. Full, normal range of motion. Neuro: Awake and alert, GCS 15, oriented to person, place, time, and situation. Cranial nerves II-XII grossly intact. Motor strength 5/5 in all extremities. Sensory grossly intact. Cerebellar exam normal. Normal gait. Vital Signs: 15:06 BP 121 / 84; Pulse 86; Resp 18; Temp 98.4; Pulse Ox 98% on R/A; Weight 86.18 kg; Height la1 6 ft. 1 in. (185.42 cm); 15:06 Body Mass Index 25.07 (86.18 kg, 185.42 cm) la1 MDM: 15:16 Patient medically screened. snw 16:51 Data reviewed: vital signs, nurses notes. Data interpreted: Pulse oximetry: on room air snw is 98 %. Interpretation: normal. Counseling: I had a detailed discussion with the patient and/or guardian regarding: the historical points, exam findings, and any diagnostic results supporting the discharge/admit diagnosis, lab results, the need for outpatient follow up, to return to the emergency department if symptoms worsen or persist or if there are any questions or concerns that arise at home. Special discussion: I have referred the patient to see his PCP for further evaluation of high blood pressure. Based on the history and exam findings, there is no indication for further emergent testing or inpatient evaluation. I discussed with the patient/guardian the need to see the primary care provider for further evaluation of the symptoms. 03/02 15:18 Order name: Strep; Complete Time: 16:02 la1 03/02 15:18 Order name: Flu; Complete Time: 16:02 la1 03/02 16:01 Order name: Throat Culture EDMS Administered Medications: No medications were administered Disposition: 03/03 08:15 Co-signature as Attending Physician, Michael Salinas MD I agree with the assessment and christian plan of care. Disposition: 03/02/19 16:43 Discharged to Home. Impression: Influenza due to other identified influenza virus - - B. - Condition is Stable. - Discharge Instructions: Influenza, Adult, Cough, Adult, Rehydration, Adult. - Prescriptions for Diclofenac Sodium 75 mg Oral Tablet Sustained Release - take 1 tablet by ORAL route 2 times per day; 30 tablet. promethazine 25 mg Oral Tablet - take 1 tablet by ORAL route every 6 hours As needed; 20 tablet. - Medication Reconciliation Form, Thank You Letter, Antibiotic Education, Prescription Opioid Use form. - Follow up: Private Physician; When: 2 - 3 days; Reason: Recheck today's complaints, Continuance of care, Re-evaluation by your physician. Follow up: Emergency Department; When: As needed; Reason: Worsening of condition. Signatures: Dispatcher [employer] Michael Chou MD MD cha Therrien, Shelly, SILVER STEWARD-C SILVER STEWARD-Csnw Nicholas Freeman RN RN la1 Megan Thomas RN RN Corrections: (The following items were deleted from the chart) 03/02 16:54 16:43 03/02/2019 16:43 Discharged to Home. Impression: Influenza due to other hb identified influenza virus - - B. Condition is Stable. Discharge Instructions: Influenza, Adult, Cough, Adult, Rehydration, Adult. Prescriptions for Diclofenac Sodium 75 mg Oral Tablet Sustained Release - take 1 tablet by ORAL route 2 times per day; 30 tablet, promethazine 25 mg Oral Tablet - take 1 tablet by ORAL route every 6 hours As needed; 20 tablet. and Forms are Medication Reconciliation Form, Thank You Letter, Antibiotic Education, Prescription Opioid Use. Follow up: Private Physician; When: 2 - 3 days; Reason: Recheck today's complaints, Continuance of care, Re-evaluation by your physician. Follow up: Emergency Department; When: As needed; Reason: Worsening of condition. snw
--- NOTE | 2019-03-02 16:44 | ER ---
Nurse's Notes [facility] Name: Juanito Irizarry Age: 33 yrs Sex: Male : 1985 Arrival Date: 03/02/2019 Time: 15:03 Bed 12 Private MD: Diagnosis: Influenza due to other identified influenza virus- - B Presentation: 03/02 15:05 Presenting complaint: Patient states: SOB, cough, congestion since Sunday, whole family la1 with similar sx, no meds taken at home. Transition of care: patient was not received from another setting of care. Onset of symptoms was March 02, 2019. Risk Assessment: Do you want to hurt yourself or someone else? Patient reports no desire to harm self or others. Initial Sepsis Screen: Does the patient meet any 2 criteria? No. Patient's initial sepsis screen is negative. Does the patient have a suspected source of infection? No. Patient's initial sepsis screen is negative. Care prior to arrival: None. 15:05 Method Of Arrival: Ambulatory la1 15:05 Acuity: ASHVIN 4 la1 Historical: - Allergies: 15:06 PENICILLINS; la1 - PMHx: 15:06 Headaches; low back pain; Seizures; la1 - Immunization history:: Adult Immunizations up to date. - Social history:: Smoking status: Patient uses tobacco products, denies chronic smoking, but will smoke occasionally. - Ebola Screening: : No symptoms or risks identified at this time. Screenin:19 Abuse screen: Denies threats or abuse. Nutritional screening: No deficits noted. la1 Tuberculosis screening: No symptoms or risk factors identified. Fall Risk None identified. Assessment: 15:18 General: Appears in no apparent distress. ill, Behavior is calm, cooperative. Neuro: la1 Level of Consciousness is awake, alert, obeys commands, Oriented to person, place, time, situation. Cardiovascular: Capillary refill < 3 seconds Patient's skin is warm and dry. Respiratory: Airway is patent Respiratory effort is even, unlabored, Respiratory pattern is regular, symmetrical. Respiratory: Breath sounds are clear bilaterally. GI: No signs and/or symptoms were reported involving the gastrointestinal system. : No signs and/or symptoms were reported regarding the genitourinary system. 16:00 Reassessment: Patient appears in no apparent distress at this time. No changes from hb previously documented assessment. Patient and/or family updated on plan of care and expected duration. Pain level reassessed. Patient is alert/active/playful, equal unlabored respirations, skin warm/dry/pink. Vital Signs: 15:06 BP 121 / 84; Pulse 86; Resp 18; Temp 98.4; Pulse Ox 98% on R/A; Weight 86.18 kg; Height la1 6 ft. 1 in. (185.42 cm); 15:06 Body Mass Index 25.07 (86.18 kg, 185.42 cm) la1 ED Course: 15:03 Patient arrived in ED. as 15:06 Triage completed. la1 15:07 Arm band placed on left wrist. la1 15:18 [facility]. snw 15:18 Michael Salinas MD is Attending Physician. snw 15:19 Call light in reach. la1 16:31 Megan Thomas, RN is Primary Nurse. hb 16:54 No provider procedures requiring assistance completed. Patient did not have IV access hb during this emergency room visit. Administered Medications: No medications were administered Outcome: 16:43 Discharge ordered by . snw 16:54 Discharged to home ambulatory, with family. hb 16:54 Condition: stable 16:54 Discharge instructions given to patient, Instructed on discharge instructions, follow up and referral plans. medication usage, Demonstrated understanding of instructions, follow-up care, medications, Prescriptions given X 2. 16:54 Patient left the ED. hb Signatures: Amanda Lindo FNP-C FNP-Kamryn Waterman Lee RN RN la1 Megan Thomas, JUAN JOSE RN hb
== END 2019-03-02 16:54 | disposition home or self-care (01) ==
LOC: ER 15:02
DX: J10.1 Influenza due to other identified influenza virus with other respiratory manifestations (principal); Z88.0 Allergy status to penicillin; Z72.0 Tobacco use
CPT/HCPCS: 87070; 87081; 87804; 99282

== ENCOUNTER 2019-04-16 18:37 | Emergency (ER) | payer SELFPAY ==
--- NOTE | 2019-04-16 19:52 | EDPHYS ---
Physician Documentation [facility] Name: Juanito Irizarry Age: 33 yrs Sex: Male : 1985 Arrival Date: 04/16/2019 Time: 18:39 Bed 26 Private MD: ED Physician Carlos Eduardo Ellison HPI: 04/16 19:04 This 33 yrs old Male presents to ER via Ambulatory with complaints of Ear cp Pain. 19:04 The patient presents with hearing loss, partial. The complaints affect the left ear. cp Onset: The symptoms/episode began/occurred gradually, and became worse today. Associated signs and symptoms: Pertinent positives: sore throat, Pertinent negatives: cough, fever, sinus trouble. Severity of symptoms: in the emergency department the symptoms are unchanged despite home interventions. Historical: - Allergies: 18:48 PENICILLINS; hb - Home Meds: 18:48 vitamin [id number] acid oral oral [Active]; hb - PMHx: 18:48 Headaches; low back pain; Seizures; hb - PSHx: 18:48 None; hb - Immunization history:: Adult Immunizations up to date. - Social history:: Smoking status: Patient uses tobacco products, smokes one-half pack cigarettes per day. - Ebola Screening: : No symptoms or risks identified at this time. ROS: 19:05 Eyes: Negative for injury, pain, redness, and discharge. cp 19:05 Constitutional: Negative for body aches, chills, fever, poor PO intake. 19:05 ENT: Positive for hearing loss, sore throat, Negative for drainage from ear(s), sinus congestion, sinus pain, difficulty swallowing, difficulty handling secretions. 19:05 Respiratory: Negative for cough, shortness of breath, wheezing. 19:05 Abdomen/GI: Negative for abdominal pain, nausea, vomiting, and diarrhea. 19:05 Skin: Negative for cellulitis, rash. 19:05 All other systems are negative. Exam: 19:10 Head/Face: Normocephalic, atraumatic. cp 19:10 Constitutional: The patient appears in no acute distress, alert, awake, non-toxic, well developed, well nourished. 19:10 Eyes: Periorbital structures: appear normal, Conjunctiva: normal, Lids and lashes: cp appear normal, bilaterally. 19:10 ENT: External ear(s): are unremarkable, Ear canal(s): cerumen impaction, that is mild, occluding the left ear canal, erythema, is not appreciated, of the left canal, TM's: not visable, because of cerumen, Examination of the other ear shows no obvious abnormality, Mouth: is normal, Posterior pharynx: Airway: no evidence of obstruction, patent, Tonsils: no enlargement, no exudate, Uvula: normal, swelling, is not appreciated, erythema, that is mild, exudate, is not appreciated. 19:10 Neck: ROM/movement: is normal, is supple, no meningismus, no nuchal rigidity, Lymph nodes: no appreciated lymphadenopathy. 19:10 Chest/axilla: Inspection: normal. 19:10 Cardiovascular: Rate: normal. 19:10 Respiratory: the patient does not display signs of respiratory distress, Respirations: normal. 19:10 Skin: no rash present. Vital Signs: 18:48 BP 136 / 86; Pulse 93; Resp 16; Temp 97.1; Pulse Ox 100% on R/A; Weight 85.28 kg; hb Height 6 ft. 1 in. (185.42 cm); Pain 3/10; 20:03 BP 125 / 78; Pulse 89; Resp 18; Temp 98; Pulse Ox 100% on R/A; Pain 0/10; mg2 18:48 Body Mass Index 24.80 (85.28 kg, 185.42 cm) hb MDM: 18:51 Patient medically screened. cp 19:10 Differential diagnosis: otitis media, otitis externa, ruptured TM, foreign body, cp cerumen impaction, strep throat. 19:50 Data reviewed: vital signs, nurses notes, lab test result(s), and as a result, I will cp discharge patient. 19:50 Counseling: I had a detailed discussion with the patient and/or guardian regarding: the cp historical points, exam findings, and any diagnostic results supporting the discharge/admit diagnosis, lab results, to return to the emergency department if symptoms worsen or persist or if there are any questions or concerns that arise at home. ED course: Recommend use of home ear irrigation kit for cerumen removal. 04/16 19:03 Order name: Strep cp 04/16 19:49 Order name: Throat Culture EDMS Administered Medications: No medications were administered Disposition: 04/16/19 19:51 Discharged to Home. Impression: Impacted cerumen, left ear, Acute pharyngitis. - Condition is Stable. - Discharge Instructions: Earwax Buildup, Adult, Sore Throat, Ear Irrigation. - Medication Reconciliation Form, Thank You Letter, Antibiotic Education, Prescription Opioid Use form. - Follow up: Sarah Hoffman MD; When: 2 - 3 days; Reason: decreased hearing continues. - Problem is new. - Symptoms have improved. Signatures: Dispatcher [employer] EDMS Michael Santos PA PA cp Megan Thomas, JUAN JOSE RN [place] RN RN mg2 Corrections: (The following items were deleted from the chart) 20:04 19:51 04/16/2019 19:51 Discharged to Home. Impression: Impacted cerumen, left ear; mg2 Acute pharyngitis. Condition is Stable. Forms are Medication Reconciliation Form, Thank You Letter, Antibiotic Education, Prescription Opioid Use. Follow up: Sarah Hoffman; When: 2 - 3 days; Reason: decreased hearing continues. Problem is new. Symptoms have improved. cp
--- NOTE | 2019-04-16 19:52 | ER ---
Nurse's Notes [facility] Name: Juanito Irizarry Age: 33 yrs Sex: Male : 1985 Arrival Date: 04/16/2019 Time: 18:39 Bed 26 Private MD: Diagnosis: Impacted cerumen, left ear;Acute pharyngitis Presentation: 04/16 18:45 Presenting complaint: Patient states: "I keep feeling like there is something crawling hb inside my left ear. We tried to clean it out with hydrogen peroxide and I am getting nasty brown stuff out of it, but something is still inside and now I can't hear anything.". Transition of care: patient was not received from another setting of care. Onset of symptoms was April 03, 2019. Risk Assessment: Do you want to hurt yourself or someone else? Patient reports no desire to harm self or others. Care prior to arrival: None. 18:45 Method Of Arrival: Ambulatory hb 18:45 Acuity: ASHVIN 4 hb 19:21 Initial Sepsis Screen: Does the patient meet any 2 criteria? No. Patient's initial mg2 sepsis screen is negative. Does the patient have a suspected source of infection? No. Patient's initial sepsis screen is negative. Historical: - Allergies: 18:48 PENICILLINS; hb - Home Meds: 18:48 vitamin [id number] acid oral oral [Active]; hb - PMHx: 18:48 Headaches; low back pain; Seizures; hb - PSHx: 18:48 None; hb - Immunization history:: Adult Immunizations up to date. - Social history:: Smoking status: Patient uses tobacco products, smokes one-half pack cigarettes per day. - Ebola Screening: : No symptoms or risks identified at this time. Screenin:51 Abuse screen: Denies threats or abuse. Denies injuries from another. Nutritional mg2 screening: No deficits noted. Tuberculosis screening: No symptoms or risk factors identified. Fall Risk None identified. Assessment: 19:17 General: Appears in no apparent distress. comfortable, Behavior is calm, cooperative. mg2 Pain: Complains of pain in left ear, throat. Neuro: Level of Consciousness is awake, alert, obeys commands, Oriented to person, place, time, situation. Cardiovascular: Capillary refill < 3 seconds Patient's skin is warm and dry. Respiratory: Airway is patent Respiratory effort is even, unlabored, Respiratory pattern is regular, symmetrical. Respiratory: Reports cough that is productive. GI: No signs and/or symptoms were reported involving the gastrointestinal system. : No signs and/or symptoms were reported regarding the genitourinary system. EENT: Reports sore throat. Derm: Skin is intact, is healthy with good turgor, Skin is pink, warm \\T\\ dry. normal. Musculoskeletal: Circulation, motion, and sensation intact. Capillary refill < 3 seconds. Vital Signs: 18:48 BP 136 / 86; Pulse 93; Resp 16; Temp 97.1; Pulse Ox 100% on R/A; Weight 85.28 kg; hb Height 6 ft. 1 in. (185.42 cm); Pain 3/10; 20:03 BP 125 / 78; Pulse 89; Resp 18; Temp 98; Pulse Ox 100% on R/A; Pain 0/10; mg2 18:48 Body Mass Index 24.80 (85.28 kg, 185.42 cm) hb ED Course: 18:39 Patient arrived in ED. mr 18:47 Triage completed. hb 18:47 Arm band placed on. hb 18:51 [place], RN is Primary Nurse. mg2 18:51 Michael Santos PA is PHCP. cp 18:51 Carlos Eduardo Ellison MD is Attending Physician. cp 18:52 No provider procedures requiring assistance completed. Patient did not have IV access mg2 during this emergency room visit. 19:22 Patient has correct armband on for positive identification. Bed in low position. Call mg2 light in reach. Pulse ox on. NIBP on. Door closed. 19:50 Sarah Hoffman MD is Referral Physician. cp Administered Medications: No medications were administered Outcome: 19:51 Discharge ordered by . cp 20:04 Discharged to home ambulatory. mg2 20:04 Condition: stable 20:04 Discharge instructions given to patient, Instructed on discharge instructions, follow up and referral plans. Demonstrated understanding of instructions, follow-up care. 20:04 Patient left the ED. mg2 Signatures: Makayla Leo mr Michael Santos PA PA cp Megan Thomas RN RN [place] RN RN mg2
== END 2019-04-16 20:04 | disposition home or self-care (01) ==
LOC: ER 18:37
DX: H61.22 Impacted cerumen, left ear (principal); J02.9 Acute pharyngitis, unspecified; F17.210 Nicotine dependence, cigarettes, uncomplicated; Z88.0 Allergy status to penicillin
CPT/HCPCS: 87070; 87081; 99283

== ENCOUNTER 2019-05-02 17:48 | Emergency (ER) | payer SELFPAY ==
[2019-05-02] MEDS ORDERED: NA CHLORIDE 0.9% 1,000 ML ONE (18:35)
[2019-05-02 18:42] LABS: Absolute Lymphocytes (CBC) 1.3 K/uL (0.7-4.9); Absolute Monocytes 0.8 K/uL (0.1-1.3); Absolute Neutrophil 4.9 K/uL (1.8-8.0); Basophils % 0.5 % (0-1.3); Eosinophils % 0.7 % (0-4.4); Hematocrit 43.1 % (39.6-49.0); Monocytes % 10.8 % (3.3-12.3); RBC Red Blood Cell Count 4.78 M/uL (4.33-5.43)
[2019-05-02 18:45] LABS: Urine Blood 3+ (NEG); Urine Glucose NEGATIVE (NEG); Urine Protein 1+ (NEG); Urine Specific Gravity 1.025 (1.005-1.030); Urine pH 5.5 (5.0-7.0)
[2019-05-02 19:00] LABS: ALT/SGPT 23 U/L (12-78); AST/SGOT 20 U/L (15-37); Albumin 4.3 g/dL (3.4-5.0); Alkaline Phosphatase 100 U/L (45-117); BUN Blood Urea Nitrogen 14 mg/dL (7-18); Bicarbonate 25 mmol/L (21-32); Bilirubin Direct 0.1 mg/dL (0-0.2); Bilirubin Total 0.4 mg/dL (0.2-1.0); Glucose Level 87 mg/dL (74-106); Lipase 125 U/L (73-393); Potassium 3.7 mmol/L (3.5-5.1); Protein, Total 7.8 g/dL (6.4-8.2); Sodium Level 138 mmol/L (136-145)
--- NOTE | 2019-05-02 19:16 | RAD REPORT ---
EXAM DESCRIPTION: CT - Stone Protocol - 05/02/2019 6:42 pm CLINICAL HISTORY: Abdominal pain. Hematuria COMPARISON: None. TECHNIQUE: Computed axial tomography of the abdomen pelvis was obtained without oral or IV contrast. Lack of IV and oral contrast limits evaluation of solid organs, bowel, and vessels. Coronal reformat saul images were obtained and reviewed. All CT scans are performed using dose optimization technique as appropriate and may include automated exposure control or mA/KV adjustment according to patient size. FINDINGS: A renal calculus is not seen. An ureteral calculus is not noted. A bladder calculus is not present. The liver, spleen, pancreas and adrenals appear grossly normal There is no evidence of diverticulitis. The appendix appears normal IMPRESSION: Negative for a genitourinary calculus
[2019-05-02 19:29] LABS: Urine Amorphous Sediment 1+ /HPF (NONE SEEN); Urine Bacteria <20 /HPF (NONE SEEN); Urine Culture Reflex Order REFLEXED; Urine Mucus 1+ /HPF (NONE SEEN); Urine RBC >50 /HPF (NONE SEEN)
--- NOTE | 2019-05-02 19:35 | EDPHYS ---
Physician Documentation [facility] Name: Juanito Irizarry Age: 33 yrs Sex: Male : 1985 Arrival Date: 05/02/2019 Time: 17:52 Bed 26 Private MD: ED Physician Carlos Eduardo Ellison HPI: 05/02 18:17 This 33 yrs old Male presents to ER via Ambulatory with complaints of blood jmm in urine. 18:17 The patient presents with urinary symptoms, hematuria. Onset: The symptoms/episode jmm began/occurred acutely, 2 week(s) ago. Modifying factors: The symptoms are alleviated by nothing, the symptoms are aggravated by nothing. Associated signs and symptoms: Pertinent positives: back pain, Pertinent negatives: fever. This is a 33 year old male with a history of epilepsy that presents to the ED with complaints of blood in urine and painful urination. Patient states this episode began 2 weeks ago after intercourse. Denies fever, denies vomiting. . Historical: - Allergies: 17:59 PENICILLINS; aa5 - Home Meds: 18:22 vitamin [id number]-[id number] acid Oral [Active]; rv - PMHx: 17:59 Headaches; low back pain; Seizures; aa5 - PSHx: 17:59 None; aa5 - Immunization history:: Flu vaccine is not up to date. - Social history:: Smoking status: Patient uses tobacco products, 3 cigarettes a day . - Ebola Screening: : No symptoms or risks identified at this time. ROS: 18:17 Constitutional: Negative for fever, chills, and weight loss, Cardiovascular: Negative jmm for chest pain, palpitations, and edema, Respiratory: Negative for shortness of breath, cough, wheezing, and pleuritic chest pain. 18:17 Back: Positive for pain at rest, pain with movement. 18:17 : Positive for urinary symptoms. 18:17 All other systems are negative. Exam: 18:17 Head/Face: atraumatic. Eyes: EOMI, no conjunctival erythema appreciated ENT: Moist jmm Mucus Membranes Neck: Trachea midline, Supple Chest/axilla: Normal chest wall appearance and motion. Cardiovascular: Regular rate and rhythm. No edema appreciated Respiratory: Normal respirations, no respiratory distress appreciated Abdomen/GI: Non distended, soft Back: Normal ROM Skin: General appearance color normal MS/ Extremity: Moves all extremities, no obvious deformities appreciated, no edema noted to the lower extremities Neuro: Awake and alert, normal gait Psych: Behavior is normal, Mood is normal, Patient is cooperative and pleasant 18:17 Constitutional: The patient appears in no acute distress, alert, awake. Vital Signs: 18:00 BP 117 / 71; Pulse 77; Resp 16 S; Temp 98.3(O); Pulse Ox 97% on R/A; Weight 85.28 kg aa5 (R); Height 6 ft. 1 in. (185.42 cm) (R); Pain 0/10; 19:00 BP 110 / 76; Pulse 63; Resp 16; Pulse Ox 96% ; rv 19:51 BP 108 / 74; Pulse 64; Resp 16; Temp 98.1; Pulse Ox 98% ; rv 18:00 Body Mass Index 24.80 (85.28 kg, 185.42 cm) aa5 MDM: 18:17 Patient medically screened. [facility] 19:34 Data reviewed: vital signs, nurses notes. Counseling: I had a detailed discussion with aimee the patient and/or guardian regarding: the historical points, exam findings, and any diagnostic results supporting the discharge/admit diagnosis, lab results, radiology results, the need for outpatient follow up, to return to the emergency department if symptoms worsen or persist or if there are any questions or concerns that arise at home. ED course: Patient advised of the need to follow up with urology for further evaluation due to concerns for bladder cancer. Patient was otherwise given strict return precautions. Patient understood and agrees with the plan of care. . 05/02 18:18 Order name: Basic Metabolic Panel; Complete Time: 19:05 [facility] 05/02 18:18 Order name: CBC with Diff; Complete Time: 18:53 [facility] 05/02 18:18 Order name: Creatinine for Radiology; Complete Time: 19:05 [facility] 05/02 18:18 Order name: Hepatic Function; Complete Time: 19:05 [facility] 05/02 18:18 Order name: Lipase; Complete Time: 19:05 [facility] 05/02 18:18 Order name: Urine Microscopic Only; Complete Time: 19:30 [facility] 05/02 18:18 Order name: IV Saline Lock; Complete Time: 18:56 [facility] 05/02 18:18 Order name: Labs collected and sent; Complete Time: 18:56 [facility] 05/02 18:18 Order name: Urine Dipstick-Ancillary (obtain specimen); Complete Time: 18:18 [facility] 05/02 18:18 Order name: CT Stone Protocol; Complete Time: 19:17 [facility] 05/02 18:32 Order name: Urine Dipstick--Ancillary (enter results); Complete Time: 18:47 ss 05/02 19:33 Order name: Urine Culture EDMS Administered Medications: 18:58 Drug: NS 0.9% 1000 ml Route: IV; Rate: 1 bolus; Site: left antecubital; rv 19:15 Follow up: IV Status: Completed infusion; IV Intake: 1000ml rv Disposition: 05/03 07:29 Co-signature as Attending Physician, Carlos Eduardo Ellison MD. rn Disposition: 05/02/19 19:36 Discharged to Home. Impression: Hematuria, unspecified. - Condition is Stable. - Discharge Instructions: Hematuria, Adult. - Prescriptions for Bactrim DS 800- 160 mg Oral Tablet - take 1 tablet by ORAL route every 12 hours for 3 days; 6 tablet. - Medication Reconciliation Form, Thank You Letter, Antibiotic Education, Prescription Opioid Use form. - Follow up: Private Physician; When: 2 - 3 days; Reason: Recheck today's complaints, Continuance of care, Re-evaluation by your physician. Follow up: Graham Villagran MD; When: 2 - 3 days; Reason: Recheck today's complaints, Continuance of care, Re-evaluation by your physician. Signatures: Dispatcher [employer] EDMS Brendan Brunner PA PA [facility] Carlos Eduardo Ellison MD MD rn Calderon, Audri, RN RN aa5 Andrew Kessler RN RN rv Corrections: (The following items were deleted from the chart) 05/02 19:36 19:36 05/02/2019 19:36 Discharged to Home. Impression: Hematuria, unspecified. [facility] Condition is Stable. Forms are Medication Reconciliation Form, Thank You Letter, Antibiotic Education, Prescription Opioid Use. Follow up: Private Physician; When: 2 - 3 days; Reason: Recheck today's complaints, Continuance of care, Re-evaluation by your physician. [facility] 19:53 19:36 05/02/2019 19:36 Discharged to Home. Impression: Hematuria, unspecified. rv Condition is Stable. Discharge Instructions: Hematuria, Adult. Prescriptions for Bactrim DS 800-160 mg Oral Tablet - take 1 tablet by ORAL route every 12 hours for 3 days; 6 tablet. and Forms are Medication Reconciliation Form, Thank You Letter, Antibiotic Education, Prescription Opioid Use. Follow up: Private Physician; When: 2 - 3 days; Reason: Recheck today's complaints, Continuance of care, Re-evaluation by your physician. Follow up: Graham Villagran; When: 2 - 3 days; Reason: Recheck today's complaints, Continuance of care, Re-evaluation by your physician. aimee
--- NOTE | 2019-05-02 19:35 | ER ---
Nurse's Notes [facility] [place], [place] Name: Juanito Irizarry Age: 33 yrs Sex: Male : 1985 Arrival Date: 05/02/2019 Time: 17:52 Bed 26 Private MD: Diagnosis: Hematuria, unspecified Presentation: 05/02 17:58 Presenting complaint: Patient states: blood in urine x 2 days ago. Pt reports stinging aa5 to penis with urination. Transition of care: patient was not received from another setting of care. Onset of symptoms was April 2019. Risk Assessment: Do you want to hurt yourself or someone else? Patient reports no desire to harm self or others. Initial Sepsis Screen: Does the patient meet any 2 criteria? No. Patient's initial sepsis screen is negative. Does the patient have a suspected source of infection? No. Patient's initial sepsis screen is negative. Care prior to arrival: None. 17:58 Method Of Arrival: Ambulatory aa5 17:58 Acuity: ASHVIN 3 aa5 Historical: - Allergies: 17:59 PENICILLINS; aa5 - Home Meds: 18:22 vitamin G82-xrwde acid Oral [Active]; rv - PMHx: 17:59 Headaches; low back pain; Seizures; aa5 - PSHx: 17:59 None; aa5 - Immunization history:: Flu vaccine is not up to date. - Social history:: Smoking status: Patient uses tobacco products, 3 cigarettes a day . - Ebola Screening: : No symptoms or risks identified at this time. Screenin:21 Abuse screen: Denies threats or abuse. Denies injuries from another. Nutritional rv screening: No deficits noted. Tuberculosis screening: No symptoms or risk factors identified. Fall Risk None identified. Assessment: 18:20 General: Appears in no apparent distress. comfortable, Behavior is calm, cooperative. rv Pain: Denies pain. Neuro: Level of Consciousness is awake, alert, obeys commands, Oriented to person, place, time, situation. Cardiovascular: Patient's skin is warm and dry. Respiratory: Airway is patent. GI: No signs and/or symptoms were reported involving the gastrointestinal system. : Reports blood in urine. EENT: No signs and/or symptoms were reported regarding the EENT system. Derm: Skin is intact. Musculoskeletal: No signs and/or symptoms reported regarding the musculoskeletal system. Vital Signs: 18:00 BP 117 / 71; Pulse 77; Resp 16 S; Temp 98.3(O); Pulse Ox 97% on R/A; Weight 85.28 kg aa5 (R); Height 6 ft. 1 in. (185.42 cm) (R); Pain 0/10; 19:00 BP 110 / 76; Pulse 63; Resp 16; Pulse Ox 96% ; rv 19:51 BP 108 / 74; Pulse 64; Resp 16; Temp 98.1; Pulse Ox 98% ; rv 18:00 Body Mass Index 24.80 (85.28 kg, 185.42 cm) 5 ED Course: 17:52 Patient arrived in ED. aa 17:58 Arm band placed on. [facility] 17:59 Triage completed. [facility] 18:05 Brendan Brunner PA is PHCP. [facility] 18:05 Carlos Eduardo Elilson MD is Attending Physician. [facility] 18:06 Andrew Kessler RN is Primary Nurse. rv 18:22 Patient has correct armband on for positive identification. Bed in low position. Call rv light in reach. Side rails up X 1. Adult w/ patient. Pulse ox on. NIBP on. 18:42 CT Stone Protocol In Process Unspecified. EDMS 19:36 Graham Villagran MD is Referral Physician. [facility] 19:52 No provider procedures requiring assistance completed. IV discontinued, intact, rv bleeding controlled, No redness/swelling at site. Pressure dressing applied. Administered Medications: 18:58 Drug: NS 0.9% 1000 ml Route: IV; Rate: 1 bolus; Site: left antecubital; rv 19:15 Follow up: IV Status: Completed infusion; IV Intake: 1000ml rv Intake: 19:15 IV: 1000ml; Total: 1000ml. rv Outcome: 19:36 Discharge ordered by . [facility] 19:53 Discharged to home ambulatory. rv 19:53 Condition: good 19:53 Discharge instructions given to patient, Instructed on discharge instructions, follow up and referral plans. medication usage, Demonstrated understanding of instructions, follow-up care, medications, Prescriptions given X 1. 19:53 Patient left the ED. rv Signatures: Dispatcher [employer] EDMS Brendan Brunner PA PA Michelle Mccullough RN RN aa5 Andrew Kessler, RN RN rv
== END 2019-05-02 19:53 | disposition home or self-care (01) ==
LOC: ER 17:48
DX: R31.9 Hematuria, unspecified (principal); F17.210 Nicotine dependence, cigarettes, uncomplicated; Z88.0 Allergy status to penicillin
CPT/HCPCS: 36415; 74176; 76377; 80048; 80076; 81003; 81015; 83690; 85025; 87086; 87088; 99284; J7030

== ENCOUNTER 2019-08-14 09:17 | Emergency (ER) | payer SELFPAY ==
--- NOTE | 2019-08-14 10:29 | RAD REPORT ---
EXAM DESCRIPTION: RAD - Chest Pa And Lat (2 Views) - 08/14/2019 10:22 am CLINICAL HISTORY: COUGH Chest pain. COMPARISON: No comparisons FINDINGS: The lungs are clear. The heart is normal in size. No displaced fractures. IMPRESSION: No acute or concerning finding suspected.
--- NOTE | 2019-08-14 10:43 | ER ---
Nurse's Notes [facility] Name: Juanito Irizarry Age: 33 yrs Sex: Male : 1985 Arrival Date: 08/14/2019 Time: 09:20 Bed 12 Private MD: Diagnosis: Acute upper respiratory infection, unspecified Presentation: 08/14 09:42 Presenting complaint: Patient states: c/o ernestina lower rib pain X 1 week, pain when he iw breathes, no fever, no cough, also c/o sore throat since yesterday, can't sleep, has pain all over. Transition of care: patient was not received from another setting of care. Onset of symptoms was August 07, 2019. Risk Assessment: Do you want to hurt yourself or someone else? Patient reports no desire to harm self or others. Initial Sepsis Screen: Does the patient meet any 2 criteria? No. Patient's initial sepsis screen is negative. Does the patient have a suspected source of infection? No. Patient's initial sepsis screen is negative. Care prior to arrival: None. 09:42 Method Of Arrival: Ambulatory iw 09:42 Acuity: ASHVIN 4 iw Triage Assessment: 10:00 General: Appears in no apparent distress. Behavior is calm. iw Historical: - Allergies: 09:45 PENICILLINS; iw - Home Meds: 09:45 None [Active]; iw - PMHx: 09:45 Headaches; low back pain; Seizures; iw - PSHx: 09:45 None; iw - Immunization history:: Adult Immunizations not up to date. - Social history:: Smoking status: Patient uses tobacco products, smokes one-half pack cigarettes per day. - Ebola Screening: : Patient negative for fever greater than or equal to 101.5 degrees Fahrenheit, and additional compatible Ebola Virus Disease symptoms Patient denies exposure to infectious person Patient denies travel to an Ebola-affected area in the 21 days before illness onset No symptoms or risks identified at this time. Screenin:55 Abuse screen: Denies threats or abuse. Denies injuries from another. Nutritional iw screening: No deficits noted. Tuberculosis screening: No symptoms or risk factors identified. Fall Risk None identified. Assessment: 10:00 General: Appears in no apparent distress. Behavior is calm, cooperative. Pain: iw Complains of pain in diaphragm, right lateral posterior chest and left lateral posterior chest. Neuro: Level of Consciousness is awake, alert, obeys commands, Oriented to person, place, time, situation, Moves all extremities. Cardiovascular: Patient's skin is warm and dry. Respiratory: Airway is patent Respiratory effort is even, unlabored, Breath sounds are clear bilaterally. EENT: Throat is pink. Derm: Skin is intact, is healthy with good turgor. Musculoskeletal: Range of motion: intact in all extremities. Vital Signs: 09:45 BP 116 / 83; Pulse 60; Resp 16; Temp 98.2; Pulse Ox 99% on R/A; Weight 84.37 kg; Height iw 6 ft. 1 in. (185.42 cm); Pain 8/10; 09:45 Body Mass Index 24.54 (84.37 kg, 185.42 cm) iw ED Course: 09:20 Patient arrived in ED. as 09:34 [facility]. jr8 09:34 Wayne He MD is Attending Physician. jr8 09:41 Maryam Gomez, RN is Primary Nurse. iw 09:44 Triage completed. iw 09:45 Arm band placed on. iw 10:00 Patient has correct armband on for positive identification. iw 10:56 No provider procedures requiring assistance completed. Patient did not have IV access iw during this emergency room visit. 11:16 XRAY Chest Pa And Lat (2 Views) In Process Unspecified. EDMS Administered Medications: No medications were administered Outcome: 10:34 Discharge ordered by . jr8 10:55 Discharged to home ambulatory. iw 10:55 Condition: good 10:55 Discharge instructions given to patient, Instructed on discharge instructions, follow up and referral plans. medication usage, Demonstrated understanding of instructions, follow-up care, medications, Prescriptions given X 2. 10:57 Patient left the ED. iw Signatures: Dispatcher [employer] EDMS Kamryn Miramontes as Maryam Gomez, RN RN iw Willi Day PA PA jr8
--- NOTE | 2019-08-14 10:44 | EDPHYS ---
Physician Documentation [facility] Name: Juanito Irizarry Age: 33 yrs Sex: Male : 1985 Arrival Date: 08/14/2019 Time: 09:20 Bed 12 Private MD: ED Physician Wayne He HPI: 08/14 09:56 This 33 yrs old Male presents to ER via Ambulatory with complaints of Sore jr8 Throat, Rib Pain. 09:56 The patient presents with sore throat. The patient describes throat pain as scratchy. jr8 Onset: The symptoms/episode began/occurred yesterday. Severity of symptoms: At their worst the symptoms were mild, in the emergency department the symptoms are unchanged. Pt reports sore throat since yesterday, has had pain in back for years. Additionally reports burning with urination. Denies new sexual partners or urethral discharge. . Historical: - Allergies: 09:45 PENICILLINS; iw - Home Meds: 09:45 None [Active]; iw - PMHx: 09:45 Headaches; low back pain; Seizures; iw - PSHx: 09:45 None; iw - Immunization history:: Adult Immunizations not up to date. - Social history:: Smoking status: Patient uses tobacco products, smokes one-half pack cigarettes per day. - Ebola Screening: : Patient negative for fever greater than or equal to 101.5 degrees Fahrenheit, and additional compatible Ebola Virus Disease symptoms Patient denies exposure to infectious person Patient denies travel to an Ebola-affected area in the 21 days before illness onset No symptoms or risks identified at this time. ROS: 09:56 Constitutional: Negative for fever, chills, and weight loss, Eyes: Negative for injury, jr8 pain, redness, and discharge, Neck: Negative for injury, pain, and swelling, Cardiovascular: Negative for chest pain, palpitations, and edema, Respiratory: Negative for shortness of breath, cough, wheezing, and pleuritic chest pain, Abdomen/GI: Negative for abdominal pain, nausea, vomiting, diarrhea, and constipation, Back: Negative for injury and pain, MS/Extremity: Negative for injury and deformity, Skin: Negative for injury, rash, and discoloration, Neuro: Negative for headache, weakness, numbness, tingling, and seizure. 09:56 ENT: Positive for nasal discharge, sinus congestion, sore throat. 09:56 : Positive for urinary symptoms. Exam: 09:56 Constitutional: This is a well developed, well nourished patient who is awake, alert, jr8 and in no acute distress. Head/Face: Normocephalic, atraumatic. Eyes: Pupils equal round and reactive to light, extra-ocular motions intact. Lids and lashes normal. Conjunctiva and sclera are non-icteric and not injected. Cornea within normal limits. Periorbital areas with no swelling, redness, or edema. Neck: Trachea midline, no thyromegaly or masses palpated, and no cervical lymphadenopathy. Supple, full range of motion without nuchal rigidity, or vertebral point tenderness. No Meningismus. Chest/axilla: Normal chest wall appearance and motion. Nontender with no deformity. No lesions are appreciated. Cardiovascular: Regular rate and rhythm with a normal S1 and S2. No gallops, murmurs, or rubs. Normal PMI, no JVD. No pulse deficits. Respiratory: Lungs have equal breath sounds bilaterally, clear to auscultation and percussion. No rales, rhonchi or wheezes noted. No increased work of breathing, no retractions or nasal flaring. Abdomen/GI: Soft, non-tender, with normal bowel sounds. No distension or tympany. No guarding or rebound. No evidence of tenderness throughout. Back: No spinal tenderness. No costovertebral tenderness. Full range of motion. Skin: Warm, dry with normal turgor. Normal color with no rashes, no lesions, and no evidence of cellulitis. MS/ Extremity: Pulses equal, no cyanosis. Neurovascular intact. Full, normal range of motion. Neuro: Awake and alert, GCS 15, oriented to person, place, time, and situation. Cranial nerves II-XII grossly intact. Motor strength 5/5 in all extremities. Sensory grossly intact. Cerebellar exam normal. Normal gait. 09:56 ENT: Mouth: is normal, Posterior pharynx: Airway: normal, Tonsils: are normal in appearance, erythema, that is mild, exudate, is not appreciated, peritonsillar mass, is not appreciated, pooling of secretions, is not appreciated. Vital Signs: 09:45 BP 116 / 83; Pulse 60; Resp 16; Temp 98.2; Pulse Ox 99% on R/A; Weight 84.37 kg; Height iw 6 ft. 1 in. (185.42 cm); Pain 8; 09:45 Body Mass Index 24.54 (84.37 kg, 185.42 cm) iw MDM: 09:49 Patient medically screened. [facility] 10:33 Data reviewed: vital signs, nurses notes, lab test result(s), radiologic studies, plain [facility] films, and as a result, I will discharge patient. Data interpreted: Pulse oximetry: on room air is 99 %. Interpretation: normal. Counseling: I had a detailed discussion with the patient and/or guardian regarding: the historical points, exam findings, and any diagnostic results supporting the discharge/admit diagnosis, lab results, radiology results, the need for outpatient follow up, a family practitioner, to return to the emergency department if symptoms worsen or persist or if there are any questions or concerns that arise at home. 08/14 09:53 Order name: Strep [facility] 08/14 10:07 Order name: Urine Dipstick--Ancillary (enter results) bd 08/14 09:53 Order name: XRAY Chest Pa And Lat (2 Views) [facility] 08/14 09:53 Order name: Urine Dipstick-Ancillary (obtain specimen); Complete Time: 09:55 [facility] 08/14 10:32 Order name: Group A Streptococcus Rapid Sc EDMS Administered Medications: No medications were administered Disposition: 11:11 Co-signature as Attending Physician, Wayne He MD I agree with the assessment and kdr plan of care. Disposition: 08/14/19 10:34 Discharged to Home. Impression: Acute upper respiratory infection, unspecified. - Condition is Stable. - Discharge Instructions: Upper Respiratory Infection, Adult. - Prescriptions for Prednisone 20 mg Oral Tablet - take 1 tablet by ORAL route once daily for 5 days; 5 tablet. Tessalon Perles 100 mg Oral Capsule - take 1 capsule by ORAL route every 8 hours As needed; 15 capsule. Claritin- D 24 Hour 10-240 mg Oral Tablet Sustained Release 24 hr - take 1 tablet by ORAL route once daily As needed; 20 tablet. - Medication Reconciliation Form, Thank You Letter, Antibiotic Education, Prescription Opioid Use form. - Follow up: Private Physician; When: 2 - 3 days; Reason: Recheck today's complaints, Continuance of care, Re-evaluation by your physician. - Problem is new. - Symptoms have improved. Signatures: Dispatcher [employer] EDMS Wayne He MD MD kdr Maryam Gomez RN RN iw Willi Day PA PA jr8 Corrections: (The following items were deleted from the chart) 10:57 10:34 08/14/2019 10:34 Discharged to Home. Impression: Acute upper respiratory iw infection, unspecified. Condition is Stable. Forms are Medication Reconciliation Form, Thank You Letter, Antibiotic Education, Prescription Opioid Use. Follow up: Private Physician; When: 2 - 3 days; Reason: Recheck today's complaints, Continuance of care, Re-evaluation by your physician. Problem is new. Symptoms have improved. jr8
[2019-08-14 11:06] VITALS: BP 116/83; TEMP 98.2; O2SAT 99
[2019-08-14 13:47] LABS: Urine Blood NEGATIVE (NEG); Urine Glucose NEGATIVE (NEG); Urine Protein NEGATIVE (NEG)
== END 2019-08-14 10:57 | disposition home or self-care (01) ==
LOC: ER 09:17
DX: J06.9 Acute upper respiratory infection, unspecified (principal); Z88.0 Allergy status to penicillin
CPT/HCPCS: 71046; 81003; 87070; 87081; 99283

== ENCOUNTER 2019-09-07 16:41 | Emergency (ER) | payer SELFPAY ==
[2019-09-07] MEDS ORDERED: KETOROLAC 30 MG/ML INJ ONE (18:11)
--- NOTE | 2019-09-07 18:13 | RAD REPORT ---
EXAM DESCRIPTION: RAD - Chest Pa And Lat (2 Views) - 09/07/2019 5:53 pm CLINICAL HISTORY: CHEST PAIN COMPARISON: None. TECHNIQUE: PA and lateral views of the chest were obtained. FINDINGS: The lungs are clear. Heart size is normal and central vasculature is within normal limit s. No pleural effusion or pneumothorax seen. No acute bony finding noted. No aortic abnormality. No significant change from comparison. IMPRESSION: No acute cardiopulmonary process.
--- NOTE | 2019-09-07 18:15 | ER ---
Nurse's Notes [facility] Name: Juanito Irizarry Age: 33 yrs Sex: Male : 1985 Arrival Date: 09/07/2019 Time: 16:48 Bed 5 Private MD: Diagnosis: Chest pain, unspecified Presentation: 09/07 16:48 Presenting complaint: Patient states: Chest pain and epigastric pain that started aj1 approximately 30 minutes ago. Patient denies shortness of breath, palpitations. Reports pain is worse with movement. Denies cough. Patient reports that he has been worked up for chest pain previously at his doctor's office and was always diagnosed with GERD or bronchitis. Transition of care: patient was not received from another setting of care. Onset of symptoms was September 07, 2019. Risk Assessment: Do you want to hurt yourself or someone else? Patient reports no desire to harm self or others. Initial Sepsis Screen: Does the patient meet any 2 criteria? No. Patient's initial sepsis screen is negative. Does the patient have a suspected source of infection? No. Patient's initial sepsis screen is negative. Care prior to arrival: None. 16:48 Method Of Arrival: EMS: [facility] aj1 16:48 Acuity: ASHVIN 3 aj1 Triage Assessment: 16:51 General: Appears in no apparent distress. uncomfortable, Behavior is cooperative, aj1 anxious. Pain: Complains of pain in xyphoid area and epigastric area Pain does not radiate. Pain currently is 8 out of 10 on a pain scale. Pain began 30 min ago. Is continuous, Aggravated by repositioning. EENT: No deficits noted. Neuro: Level of Consciousness is awake, alert, obeys commands, Oriented to person, place, time, situation, Speech is normal. Cardiovascular: Reports chest pain, Heart tones S1 S2 present Patient's skin is warm and dry. Rhythm is sinus rhythm. Respiratory: Airway is patent Respiratory effort is even, unlabored, Respiratory pattern is regular, symmetrical, Breath sounds are clear bilaterally. GI: No signs and/or symptoms were reported involving the gastrointestinal system. Abdomen is flat, non-distended. : No signs and/or symptoms were reported regarding the genitourinary system. Derm: No signs and/or symptoms reported regarding the dermatologic system. Skin is pink, warm \T\ dry. normal. Musculoskeletal: No signs and/or symptoms reported regarding the musculoskeletal system. Circulation, motion, and sensation intact. Historical: - Allergies: 16:51 PENICILLINS; aj1 - PMHx: 16:51 Headaches; low back pain; Seizures; GERD; Bronchitis; aj1 - PSHx: 16:51 None; aj1 - Immunization history:: Adult Immunizations up to date. - Ebola Screening: : Patient denies travel to an Ebola-affected area in the 21 days before illness onset. - Social history:: Smoking status: Patient uses tobacco products. Screenin:53 Abuse screen: Denies threats or abuse. Denies injuries from another. Nutritional aj1 screening: No deficits noted. Tuberculosis screening: No symptoms or risk factors identified. 18:45 Fall Risk None identified. aj1 Assessment: 16:53 Reassessment: see triage assessment. aj1 18:00 Reassessment: Patient appears in no apparent distress at this time. No changes from aj1 previously documented assessment. Patient and/or family updated on plan of care and expected duration. Pain level reassessed. Vital Signs: 16:51 BP 122 / 88; Pulse 71; Resp 18; Temp 97.6; Pulse Ox 97% on R/A; Weight 87.54 kg (R); aj1 Height 5 ft. 9 in. (175.26 cm) (R); Pain 8/10; 18:33 BP 112 / 78; Pulse 61; Resp 18; Pulse Ox 100% ; aj1 16:51 Body Mass Index 28.50 (87.54 kg, 175.26 cm) aj1 ED Course: 16:48 Patient arrived in ED. aj1 16:49 Amanda Lindo FNP-C is PHCP. snw 16:49 Wayne He MD is Attending Physician. snw 16:50 Triage completed. aj1 16:51 Arm band placed on. aj1 16:53 Patient has correct armband on for positive identification. tariff inspector on. Pulse aj1 ox on. NIBP on. 16:53 No provider procedures requiring assistance completed. Patient maintains SpO2 aj1 saturation greater than 95% on room air. 16:54 Nini Holland RN is Primary Nurse. aj1 17:50 Chest Pa And Lat (2 Views) XRAY In Process Unspecified. EDMS 18:45 Patient did not have IV access during this emergency room visit. aj1 Administered Medications: 18:25 Drug: TORadol 30 mg Route: IM; Site: right deltoid; aj1 Outcome: 18:15 Discharge ordered by MD. estrada 18:46 Discharged to home ambulatory. aj1 18:46 Condition: good 18:46 Discharge instructions given to patient, Instructed on discharge instructions, follow up and referral plans. Demonstrated understanding of instructions, follow-up care. 18:46 Patient left the ED. aj1 Signatures: Dispatcher [employer] Nini Kumar RN RN aj1 Amanda Lindo, AUTOMATIC MACHINES SUPERVISOR-C AUTOMATIC MACHINES SUPERVISOR-Csnw
--- NOTE | 2019-09-07 18:16 | EDPHYS ---
Physician Documentation [facility] Name: Juanito Irizarry Age: 33 yrs Sex: Male : 1985 Arrival Date: 09/07/2019 Time: 16:48 Bed 5 Private MD: ED Physician Wayne He HPI: 09/07 16:58 This 33 yrs old Male presents to ER via EMS with complaints of Chest Pain. snw 16:58 The patient or guardian reports chest pain that is located primarily in the anterior snw chest wall, bilaterally. The pain does not radiate. Associated signs and symptoms: Pertinent positives: upon questioning, pt remembered that he was here three weeks ago with URI s/s. Pt has seen PCP and medications were refilled for seizure disorder. Pt has not picked them up because of financial concerns. Last seizure 3 months ago. Pt had tooth pulled last week. 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 Pt states he would like pain medications for that pain. 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 The chest pain is described as pain with movement. Smokes 2 cigarettes daily. Duration: The patient or guardian reports a single episode. Modifying factors: The symptoms are alleviated by remaining still, the symptoms are aggravated by movement. Severity of pain: At its worst the pain was moderate severe. The patient has experienced similar episodes in the past. The patient has been recently seen by a physician: as noted. Historical: - Allergies: 16:51 PENICILLINS; aj1 - PMHx: 16:51 Headaches; low back pain; Seizures; GERD; Bronchitis; aj1 - PSHx: 16:51 None; aj1 - Immunization history:: Adult Immunizations up to date. - Ebola Screening: : Patient denies travel to an Ebola-affected area in the 21 days before illness onset. - Social history:: Smoking status: Patient uses tobacco products. ROS: 16:57 Constitutional: Negative for fever, chills, and weight loss, Eyes: Negative for injury, snw pain, redness, and discharge, ENT: Negative for injury, pain, and discharge, Neck: Negative for injury, pain, and swelling. 16:57 Respiratory: Negative for shortness of breath, cough, wheezing, and pleuritic chest pain, Abdomen/GI: Negative for abdominal pain, nausea, vomiting, diarrhea, and constipation, Back: Negative for injury and pain, : Negative for injury, bleeding, discharge, and swelling, MS/Extremity: Negative for injury and deformity, Skin: Negative for injury, rash, and discoloration, Neuro: Negative for headache, weakness, numbness, tingling, and seizure. 16:57 Cardiovascular: Positive for chest pain, with movement, of the chest. Exam: 16:56 Constitutional: This is a well developed, well nourished patient who is awake, alert, snw and in no acute distress. Head/Face: Normocephalic, atraumatic. Eyes: Pupils equal round and reactive to light, extra-ocular motions intact. Lids and lashes normal. Conjunctiva and sclera are non-icteric and not injected. Cornea within normal limits. Periorbital areas with no swelling, redness, or edema. ENT: Nares patent. No nasal discharge, no septal abnormalities noted. Tympanic membranes are normal and external auditory canals are clear. Oropharynx with no redness, swelling, or masses, exudates, or evidence of obstruction, uvula midline. Mucous membranes moist. Neck: Trachea midline, no thyromegaly or masses palpated, and no cervical lymphadenopathy. Supple, full range of motion without nuchal rigidity, or vertebral point tenderness. No Meningismus. Cardiovascular: Regular rate and rhythm with a normal S1 and S2. No gallops, murmurs, or rubs. Normal PMI, no JVD. No pulse deficits. Respiratory: Lungs have equal breath sounds bilaterally, clear to auscultation and percussion. No rales, rhonchi or wheezes noted. No increased work of breathing, no retractions or nasal flaring. Abdomen/GI: Soft, non-tender, with normal bowel sounds. No distension or tympany. No guarding or rebound. No evidence of tenderness throughout. Back: No spinal tenderness. No costovertebral tenderness. Full range of motion. Skin: Warm, dry with normal turgor. Normal color with no rashes, no lesions, and no evidence of cellulitis. MS/ Extremity: Pulses equal, no cyanosis. Neurovascular intact. Full, normal range of motion. Neuro: Awake and alert, GCS 15, oriented to person, place, time, and situation. Cranial nerves II-XII grossly intact. Motor strength 5/5 in all extremities. Sensory grossly intact. Cerebellar exam normal. Normal gait. Psych: Awake, alert, with orientation to person, place and time. Behavior, mood, and affect are within normal limits. 16:56 Chest/axilla: Inspection: normal, Palpation: tenderness, that is moderate, that totally reproduces the patient's complaints. 17:05 ECG was reviewed by the Attending Physician. snw Vital Signs: 16:51 BP 122 / 88; Pulse 71; Resp 18; Temp 97.6; Pulse Ox 97% on R/A; Weight 87.54 kg (R); aj1 Height 5 ft. 9 in. (175.26 cm) (R); Pain 8/10; 18:33 BP 112 / 78; Pulse 61; Resp 18; Pulse Ox 100% ; aj1 16:51 Body Mass Index 28.50 (87.54 kg, 175.26 cm) aj1 MDM: 16:50 Patient medically screened. snw 18:30 NORAH Risk Score: TOTAL SCORE = 0. Data reviewed: vital signs, nurses notes. Data snw interpreted: Pulse oximetry: on room air is 97 %. Interpretation: normal. Counseling: I had a detailed discussion with the patient and/or guardian regarding: the historical points, exam findings, and any diagnostic results supporting the discharge/admit diagnosis, the presence of at least one elevated blood pressure reading (>120/80) during this emergency department visit, lab results, radiology results, the need for outpatient follow up, for definitive care, to return to the emergency department if symptoms worsen or persist or if there are any questions or concerns that arise at home. 09/07 17:23 Order name: Chest Pa And Lat (2 Views) XRAY; Complete Time: 18:15 snw 09/07 16:56 Order name: EKG; Complete Time: 16:56 snw 09/07 16:56 Order name: EKG - Nurse/Tech; Complete Time: 17:24 snw Administered Medications: 18:25 Drug: TORadol 30 mg Route: IM; Site: right deltoid; aj1 Disposition: 09/08 13:06 Co-signature as Attending Physician, Wayne He MD I agree with the assessment and kdr plan of care. Disposition: 09/07/19 18:15 Discharged to Home. Impression: Chest pain, unspecified. - Condition is Stable. - Discharge Instructions: Nonspecific Chest Pain, Chest Wall Pain, Gastroesophageal Reflux Disease, Adult, Hypertension, Steps to Quit Smoking, Smoking Hazards, Aspirin and Your Heart. - Work release form, Medication Reconciliation Form, Thank You Letter, Antibiotic Education, Prescription Opioid Use form. - Follow up: Private Physician; When: 1 - 2 days; Reason: Recheck today's complaints, Continuance of care, Re-evaluation by your physician. Follow up: Emergency Department; When: As needed; Reason: Worsening of condition. Signatures: Dispatcher [employer] EDMS Nini Holland RN RN aj1 Wayne He MD MD kdr Amanda Lindo, ISSUER-C ISSUER-Csnw Corrections: (The following items were deleted from the chart) 09/07 18:31 16:56 Constitutional: This is a well developed, well nourished patient who is awake, snw alert, and in no acute distress. Head/Face: Normocephalic, atraumatic. Eyes: Pupils equal round and reactive to light, extra-ocular motions intact. Lids and lashes normal. Conjunctiva and sclera are non-icteric and not injected. Cornea within normal limits. Periorbital areas with no swelling, redness, or edema. ENT: Nares patent. No nasal discharge, no septal abnormalities noted. Tympanic membranes are normal and external auditory canals are clear. Oropharynx with no redness, swelling, or masses, exudates, or evidence of obstruction, uvula midline. Mucous membranes moist. Neck: Trachea midline, no thyromegaly or masses palpated, and no cervical lymphadenopathy. Supple, full range of motion without nuchal rigidity, or vertebral point tenderness. No Meningismus. Cardiovascular: Regular rate and rhythm with a normal S1 and S2. No gallops, murmurs, or rubs. Normal PMI, no JVD. No pulse deficits. Respiratory: Lungs have equal breath sounds bilaterally, clear to auscultation and percussion. No rales, rhonchi or wheezes noted. No increased work of breathing, no retractions or nasal flaring. Abdomen/GI: Soft, non-tender, with normal bowel sounds. No distension or tympany. No guarding or rebound. No evidence of tenderness throughout. Back: No spinal tenderness. No costovertebral tenderness. Full range of motion. Skin: Warm, dry with normal turgor. Normal color with no rashes, no lesions, and no evidence of cellulitis. MS/ Extremity: Pulses equal, no cyanosis. Neurovascular intact. Full, normal range of motion. Neuro: Awake and alert, GCS 15, oriented to person, place, time, and situation. Cranial nerves II-XII grossly intact. Motor strength 5/5 in all extremities. Sensory grossly intact. Cerebellar exam normal. Normal gait. Psych: Awake, alert, with orientation to person, place and time. Behavior, mood, and affect are within normal limits. snw 18:46 18:15 09/07/2019 18:15 Discharged to Home. Impression: Chest pain, unspecified. aj1 Condition is Stable. Forms are Medication Reconciliation Form, Thank You Letter, Antibiotic Education, Prescription Opioid Use. Follow up: Private Physician; When: 1 - 2 days; Reason: Recheck today's complaints, Continuance of care, Re-evaluation by your physician. Follow up: Emergency Department; When: As needed; Reason: Worsening of condition. snw
[2019-09-07 18:55] VITALS: BP 112/78; TEMP 97.6; O2SAT 100
--- NOTE | 2019-09-08 10:03 | EKG ---
Test Date: 2019-09-07 Test Time: 16:59:12 Operations Dispatcher: JORDI MEASUREMENT RESULTS: Intervals: Rate: 63 NE: 130 QRSD: 98 QT: 406 QTc: 415 [place]: P: -12 NE: 130 QRS: 32 T: 32 INTERPRETIVE STATEMENTS: Normal sinus rhythm Normal ECG No previous ECG available for comparison Electronically Signed On 09-08-19 10:02:26 CDT by Josue Dorado
== END 2019-09-07 18:46 | disposition home or self-care (01) ==
LOC: ER 16:41
DX: R07.9 Chest pain, unspecified (principal); Z88.0 Allergy status to penicillin; Z72.0 Tobacco use
CPT/HCPCS: 71046; 93005; 96372; 99285